=== PATIENT | male | born 1960 | race Caucasian/White ===

== ENCOUNTER 2024-10-06 18:48 | Inpatient (IN) ==
[2024-10-06] MEDS: SODIUM CHLORIDE 0.9% 1,000 ML IV ONE (19:24)
[2024-10-06] MEDS: ACETAMINOPHEN 1,000 MG/100 ML VIAL IV STA (19:25)
[2024-10-06] MEDS: fentaNYL citrate PF 100 MCG/2 ML VIAL IV PRN (19:28)
--- NOTE | 2024-10-06 19:48 | Emergency Department Note ---
Impression & Plan Acute pain of right hip, Fall, Intertrochanteric fracture of right hip ED Provider Note ED Provider Note NAME: NATALI NAJERA AGE:64 SEX: Male : 1960 ARRIVES VIA: EMS INFORMANT: Patient ED PROVIDER(s): Erika Jacobson DO CHIEF COMPLAINT: Right hip pain, fall HPI: This is 64-year-old male presents emergency department due to concern for right hip pain following accidental fall at home. Patient states he tripped over an exercise ball and fell landing on his right hip. He denies any head injury or loss of consciousness. He denies any use of anticoagulation medications. Patient states due to the pain in his hip he was unable to stand back up. He states he also believes he struck his mirror during the fall with his right elbow as he noticed he was bleeding. He states he can move the elbow otherwise. He denies any pain to his neck, back, abdomen, chest, or any other lower extremity injury. He states he crawled to his phone to call family and call 911. PAST MEDICAL HISTORY:See Below PAST SURGICAL HISTORY:See Below FAMILY HISTORY:See Below SOCIAL HISTORY:See Below HOME MEDICATIONS:See Below ALLERGIES:See Below VITALS:See Below PHYSICAL EXAMINATION: GENERAL: alert, uncomfortable appearing, well nourished, no distress, non-toxic, laying left lateral recumbent EYE EXAM: normal conjunctiva, PERRL and EOM's grossly intact OROPHARYNX: no exudate, no erythema, lips, buccal mucosa, and tongue normal and mucous membranes are dry NECK: supple, no nuchal rigidity, no adenopathy, non-tender LUNGS: Clear to auscultation. Normal chest wall mechanics, no w/r/r HEART: no murmurs, S1 normal and S2 normal ABDOMEN: abdomen soft, non-tender, normo-active bowel sounds, no masses, no rebound or guarding. BACK: Back is symmetrical on inspection and there is no deformity, no midline tenderness, no CVA tenderness. SKIN: no rashes, petechiae, orbruising UPPER EXTREMITIES: upper extremities are grossly normal. FROM, nml pulses b/l. LOWER EXTREMITIES: No pitting edema. FROM left lower extremity, nml pulses b/l. Pain with palpation over the right lateral hip, patient with decreased range of motion secondary to pain, no obvious deformity, sensation intact bilateral lower extremities, patient able to wiggle toes and plantar/dorsiflex, no evidence of other more distal trauma to the right lower extremity NEURO EXAM: Normal sensorium, cranial nerves II-XII grossly intact, normal speech, no facial droop,nogross weakness of arms, no gross weakness of legs. Gross sensation intact. No ataxia. Vital Signs: reviewed and remarkable Differential Diagnosis: Fracture, subluxation, dislocation, contusion, ligamentous injury, neurovascular, compartment syndrome, rhabdomyolysis, as well as other pathologies. MEDICAL DECISION MAKING: This is a 64 yo male who presents to the ER following a fall c/o right hip pain. Labs drawn and sent, IV established, EKG and xrays performed and interpreted at bedside, and patient placed on telemetry. Patient noted have a fracture of the right hip. He had no other concern for injury and no other traumatic findings on exam. Upon further discussion at bedside, patient denies hx of heart problems but states he at one time had an irregular heartbeat. I suspect this is the mention of paroxysmal a.fib noted in the EMR. He states he is no longer taking eliquis and hasn's seen cardiology about this since it was diagnosed. Patient states he does take low dose ASA daily. We discussed results and plan. He and sister at bedside verbalized understanding. Case discussed with integration aide ortho and then with hospitalist team for additional inpatient mgmt. Patient was given IVF and initially IV fentanyl for pain. This was then changed to IV morphine. He was also given IV tylenol. Consultation(s): 2139: Discussed with Dr. Brown. 2244: Discussed with Dr. Kendall, [place] hospitalist team, for additional evaluation and mgmt. ER Treatment Provided: See below Diagnostics Interpreted By Me: -ECG: a.fib at 82, nml axis, nml intervals, nonspecific ST/T wave changes -Cardiac Monitoring: An order was placed for continuous cardiac monitoring. The monitor shows a rate of 88 with a.fib rhythm. -Laboratory studies: As stated above and show below. -Imaging studies: X-ray Chest: A single view study of the chest was reviewed and was negative for cardiomegaly, focal infiltrate, effusion, pulmonary edema, or wide mediastinum. No fx/penumothorax. xr right hip/pelvis: comminuted intertrochanteric right hip fx Triage Nursing Note Reviewed Prior/Outside Records Reviewed Past Med/Surg History Problem List (Updated 10/08/24 @ 13:58 by Erika Jacobson DO) Intertrochanteric fracture of right hip (Acute) Status post-operative repair of closed hip fracture Atrial fibrillation Closed right hip fracture Closed left hip fracture Fall (Acute) Acute pain of right hip (Acute) Colon cancer screening Encounter for pre-operative examination New onset a-fib Encounter for pre-operative examination Inguinal hernia Strain of hip flexor BMI 39.0-39.9,adult COVID-19 (Acute) Medical History intermediate school teacher (current) use of anticoagulants New onset a-fib incidental finding during pre op workup for hernia surgery 09/2023. PCP prescribed Eliquis, referred to cardiology. Pt reports he canceled cardiology appt. History of COVID-19 08/2020: cough/fever/loss of taste and smell. pt does still have altered taste. no other issues. Paroxysmal atrial fibrillation (06/21/13) pt denies. Surgical History H/O bursectomy left knee bursectomy (Dr Rahman) r/t severe knee infection H/O shoulder surgery right shoulder Family History Mother Colorectal cancer Father Lung cancer Other No family history of adverse response to anesthesia Denies family history of Ovarian cancer Prostate cancer Diabetes Dementia Depression Heart disease Myocardial infarction Breast cancer Hypertension Stroke Social History Smoking Status: Current some day smoker Tobacco Type: Cigars Age Started Using Tobacco: 59; Cigarettes Per Day: 1 per day; Second Hand Exposure: Yes; Do You Dip or Chew Tobacco: No; Hx Alcohol Use: Yes Alcohol type: beer Alcohol Intake Frequency: 4 or More x per/Week Hx Substance Use: No Preferred Language: Ethiopian Communication Ability: Effective Visual Impairment: Limited Hearing Ability: Normal Assistant Manager Bilingual Required: No Beliefs That Will Affect Care: None marital status: Single Current Living Situation: Alone current occupational status: retired How many Children do You have: 0 Feels Safe at Home: Yes Safety Concerns: Feels Safe At This Time Childhood Exposure to Second-Hand Smoke: Yes Diet: regular caffeine: Yes during the past year weight has: increased > 10 lbs Dental Care, Regularly: Yes Physical Activity Frequency: Does not Exercise Seatbelt Use: always Sunscreen Use: No Assistive Devices: None Allergies Allergies Allergy/AdvReac Type Severity Reaction Status Date / Time No Known Drug Allergies Allergy . Verified 10/06/24 21:23 Home Meds Home Medications Medication Instructions Recorded Confirmed ascorbic acid (vitamin C) 500 mg 500 mg PO QAM 09/26/23 10/06/24 tablet cholecalciferol (vitamin D3) 25 25 mcg PO DAILY 10/06/24 10/06/24 mcg (1,000 unit) tablet (Vitamin D3) vitamin E 268 mg (400 unit) capsule 268 mg PO DAILY 10/06/24 10/06/24 Results & Data (ED) Vital Signs Vital Signs - 24 hr 10/06/24 18:52 10/06/24 19:15 10/06/24 21:00 Temperature 36.5 C Temperature Source Oral Pulse Rate 79 73 Pulse Rate [Apical] 78 Pulse Rhythm [Apical] Regular Pulse Strength [Apical] Normal Respiratory Rate 21 20 Respiratory Effort / Characteristics Non-Labored Spontaneous Non-Labored Spontaneous Respiratory Depth Normal Normal Respiratory Pattern Regular Regular Blood Pressure 114/72 Blood Pressure [Right Arm] 122/84 Blood Pressure Mean 86 Blood Pressure Mean [Right Arm] 96 Blood Pressure Position [Right Arm] Lying Pulse Oximetry 94 96 Oxygen Delivery Method Room Air Room Air Sepsis Recent Fever Within 48 Hours No Sepsis New/Unexplained Change in Mental Status N/A Sepsis Action Taken by Nursing No Action Required Laboratory Data 10/08/24 06:05 10/08/24 06:05 Lab Results 10/06/24 Range/Units 19:04 WBC 5.83 (4.8-10.8) K/ul RBC 4.02 L (4.70-6.10) M/uL Hgb 13.9 L (14.0-18.0) g/dl Hct 39.7 L (42.0-52.0) % MCV 98.8 (80.0-100.0) fL MCH 34.6 H (25.0-34.0) pg MCHC 35.0 (32.0-36.0) g/dL RDW Std Deviation 44.6 (36.4-46.3) fL RDW Coeff of Pita 12.2 (11.5-14.5) % Plt Count 277 (130-400) K/uL MPV 10.3 (9.4-12.4) fL Immature Gran % (Auto) 1.4 % Neut % (Auto) 45.3 % Lymph % (Auto) 37.0 % [place] % (Auto) 13.4 % Eos % (Auto) 1.4 % Baso % (Auto) 1.5 % Neut # (Auto) 2.64 (1.40-6.50) K/uL Lymph # (Auto) 2.16 (1.20-3.40) K/uL [place] # (Auto) 0.78 H (0.11-0.59) K/uL Eos # (Auto) 0.08 (0.00-0.50) K/uL Baso # (Auto) 0.09 (0.00-0.20) K/uL Immature Gran # (Auto) 0.08 (0.01-0.20) K/uL PT 10.9 (9.0-12.0) Seconds INR 1.0 (0.9-1.1) Sodium 137 (136-145) mmol/L Potassium 3.9 (3.5-5.1) mmol/L Chloride 102 (98-107) mmol/L Carbon Dioxide 24 (21-32) mmol/L Anion Gap 11 (3-11) BUN 16 (6-23) mg/dl Creatinine 0.94 (0.6-1.4) mg/dl Est Cr Clr Drug Dosing 118.5 ml/min eGFR 91.09 BUN/Creatinine Ratio 17.0 (10-20) Glucose 150 H (70-99(Fasting)) mg/dl Calcium 9.0 (8.6-10.3) mg/dl Magnesium 2.0 (1.7-2.4) mg/dl Total Bilirubin 0.3 (0.2-1.0) mg/dl AST 24 (13-39) U/L ALT 32 (7-52) U/L Alkaline Phosphatase 69 (34-104) U/L Total Protein 7.2 (6.0-8.3) gm/dl Albumin 4.1 (3.4-5.0) gm/dl Globulin 3.1 (2.5-4.0) gm/dl Albumin/Globulin Ratio 1.3 (0.9-2) TSH 2.770 (0.300-4.500) uIu/ml Administered Medications Acetaminophen (Acetaminophen 500 Mg Tab) 1,000 mg PO Q8H PRN PRN Reason: Pain & Pre PT Stop: 11/05/24 22:27 Last Admin: 10/08/24 08:22 Dose: 1,000 mg Documented By: BOLIVAR Ascorbic Acid (Ascorbic Acid 500 Mg Tab) 500 mg PO [facility] Stop: 11/06/24 08:59 Last Admin: 10/08/24 08:14 Dose: 500 mg Documented By: Admin: 10/07/24 08:49 Dose: 500 mg Documented By: KIMMY Cyanocobalamin (Cyanocobalamin (B-12) 500 Mcg Tablet) [facility] Stop: 11/07/24 08:59 Last Admin: 10/08/24 08:14 Dose: 500 mcg Documented By: BOLIVAR Folic Acid (Folic Acid 1 Mg Tab) 1 mg PO [facility] Stop: 11/07/24 08:59 Last Admin: 10/08/24 08:14 Dose: 1 mg Documented By: BOLIVAR Morphine Sulfate (Morphine Sulfate 4 Mg/Ml 1 Ml Carp\Vial) 4 mg IV Q3H PRN PRN Reason: Pain (6,7,8,9,10) Stop: 10/20/24 22:27 Last Admin: 10/08/24 12:56 Dose: 4 mg Documented By: Admin: 10/07/24 21:56 Dose: 4 mg Documented By: Admin: 10/07/24 10:54 Dose: 4 mg Documented By: Admin: 10/07/24 05:45 Dose: 4 mg Documented By: MARIA ANTONIA Admin: 10/07/24 02:38 Dose: 4 mg Documented By: MARIA ANTONIA Thiamine HCl (Thiamine Hcl 100 Mg Tab) [facility] Stop: 11/07/24 08:59 Last Admin: 10/08/24 08:14 Dose: 100 mg Documented By: BOLIVAR Vitamin D (Cholecalciferol 25 Mcg (1000 Units) Tab) 25 mcg PO DAILY [facility] Stop: 11/06/24 08:59 Last Admin: 10/08/24 08:14 Dose: 25 mcg Documented By: Admin: 10/07/24 08:49 Dose: 25 mcg Documented By: CSE Discontinued Medications Bupivacaine HCl (Bupivacaine 0.5 % 5 Mg/1 Ml Mpf 30ml Vial) Confirm Administered Dose 30 ml .ROUTE .STK-MED ONE Stop: 10/07/24 14:30 Last Admin: 10/07/24 15:57 Dose: 20 ml Documented By: NACHO Fentanyl Citrate (Fentanyl Citrate Pf 100 Mcg/2 Ml Vial) 100 mcg IV Q15M PRN PRN Reason: Pain Stop: 10/20/24 19:03 Last Admin: 10/06/24 19:28 Dose: 100 mcg Documented By: KEATON Fentanyl Citrate (Fentanyl Citrate Pf 100 Mcg/2 Ml Vial) 25 mcg IV Q5M PRN PRN Reason: PACU Use Only-Pain Stop: 10/07/24 21:48 Last Admin: 10/07/24 16:55 Dose: 25 mcg Documented By: Admin: 10/07/24 16:50 Dose: 25 mcg Documented By: Admin: 10/07/24 16:45 Dose: 25 mcg Documented By: Admin: 10/07/24 16:40 Dose: 25 mcg Documented By: JOSEPHINE Hydromorphone HCl (Hydromorphone Inj 1 Mg/Ml Syringe) 0.25 mg IV Q5M PRN PRN Reason: PACU Use Only-Pain Stop: 10/07/24 21:48 Last Admin: 10/07/24 17:15 Dose: 0.25 mg Documented By: Admin: 10/07/24 17:10 Dose: 0.25 mg Documented By: Admin: 10/07/24 17:05 Dose: 0.25 mg Documented By: Admin: 10/07/24 17:00 Dose: 0.25 mg Documented By: JOSEPHINE Sodium Chloride (Nss) 1,000 mls @ 999 mls/hr IV .Q1H1M ONE Stop: 10/06/24 20:04 Last Infusion: 10/06/24 23:20 Dose: Infused Documented By: Admin: 10/06/24 19:24 Dose: 999 mls/hr Documented By: KEATON Acetaminophen (Ofirmev) 1,000 mg in 100 mls @ 400 mls/hr IV NOW STA Stop: 10/06/24 19:18 Last Infusion: 10/06/24 23:19 Dose: Infused Documented By: Admin: 10/06/24 19:25 Dose: 400 mls/hr Documented By: KEATON Sodium Chloride (Nss) 1,000 mls @ 125 mls/hr IV .Q8H DARIN Stop: 10/07/24 22:44 Last Infusion: 10/08/24 04:11 Dose: Infused Documented By: Admin: 10/07/24 19:09 Dose: 125 mls/hr Documented By: Admin: 10/07/24 18:36 Dose: Not Given Documented By: Infusion: 10/07/24 18:05 Dose: Infused Documented By: Admin: 10/07/24 07:58 Dose: 125 mls/hr Documented By: Infusion: 10/07/24 07:26 Dose: Infused Documented By: Admin: 10/06/24 23:26 Dose: 125 mls/hr Documented By: Tranexamic Acid (Tranexamic Acid / 0.7% Nacl) 1,000 mg in 100 mls @ 600 mls/hr IV PREOP DARIN Stop: 10/07/24 16:00 Last Admin: 10/07/24 18:36 Dose: Not Given Documented By: SETH Tranexamic Acid (Tranexamic Acid / 0.7% Nacl) 1,000 mg in 100 mls @ 600 mls/hr IV PREOP DARIN Stop: 10/07/24 16:00 Last Infusion: 10/07/24 18:05 Dose: Infused Documented By: Admin: 10/07/24 15:53 Dose: 600 mls/hr Documented By: DELPHINE Cefazolin Sodium (Ancef 3000mg) 3,000 mg in 72.5 mls @ 130 mls/hr IV PREOP DARIN; Protocol Stop: 10/07/24 18:00 Last Infusion: 10/07/24 18:05 Dose: Infused Documented By: Admin: 10/07/24 14:34 Dose: 130 mls/hr Documented By: DELPHINE Cefazolin Sodium (Ancef 2000mg) 2,000 mg in 15 mls @ 3.75 mls/min IV Q8H DARIN; Protocol Stop: 10/08/24 06:33 Last Admin: 10/08/24 05:52 Dose: 3.75 mls/min Documented By: Admin: 10/07/24 21:47 Dose: 3.75 mls/min Documented By: SMN Lidocaine/Epinephrine (Lidocaine 1%/Epinephrine 1:100,000 50 Ml Vial) Confirm Administered Dose 20 ml .ROUTE .STK-MED ONE Stop: 10/07/24 14:30 Last Admin: 10/07/24 15:58 Dose: 20 ml Documented By: NACHO Morphine Sulfate (Morphine Sulfate 4 Mg/Ml 1 Ml Carp\Vial) 4 mg IV Q1H PRN PRN Reason: Pain Stop: 10/20/24 21:08 Last Admin: 10/06/24 21:14 Dose: 4 mg Documented By: KEATON Morphine Sulfate (Morphine Sulfate 4 Mg/Ml 1 Ml Carp\Vial) 4 mg IV NOW STA Stop: 10/06/24 22:59 Last Admin: 10/06/24 23:30 Dose: 4 mg Documented By: Imaging Data Radiologist's Impression: Chest X-Ray 10/06/24 19:04 Exam(s): XR CXR 1 VIEW EXAM: XR Chest, 1 View CLINICAL HISTORY: Reason for exam: trauma. TECHNIQUE: Frontal view of the chest. COMPARISON: No relevant prior studies available. FINDINGS: Lungs: Unremarkable. No consolidation. Pleural space: Unremarkable. No pneumothorax. Heart: Unremarkable. No cardiomegaly. Mediastinum: Unremarkable. Normal mediastinal contour. Bones/joints: Unremarkable. No acute fracture. IMPRESSION: Normal chest x-ray. Electronically signed by: Domingo Perez MD 10/06/24 20:28 PM Hip X-Ray 10/06/24 19:04 Exam(s): XR HIP + PELVIS, 2-3 views EXAM: XR Left Hip With Pelvis When Performed, 2 or 3 Views CLINICAL HISTORY: Reason for exam: trauma. TECHNIQUE: Two or three views of the left hip with pelvis when performed. COMPARISON: No relevant prior studies available. FINDINGS: Bones/joints: Comminuted displaced angulated intertrochanteric left hip fracture. Femoral head maintains a normal anatomic relationship with the acetabulum. No dislocation. Soft tissues: Unremarkable. IMPRESSION: Comminuted displaced angulated intertrochanteric left hip fracture Electronically signed by: Domingo Perez MD 10/06/24 20:30 PM Discharge Plan Visit Data Chief Complaint: Fall ED Provider: Erika Jacobson Discharge Problem: Acute pain of right hip, Fall, Intertrochanteric fracture of right hip Patient Disposition: Home - Self-Care Discharge Instructions Interventions: ED Discharge Assessment Last Done: 10/07/24 02:21
[2024-10-06 19:55] LABS: Basophils # (auto) 0.09 K/uL (0.00-0.20); Basophils % (auto) 1.5 %; Eosinophils # (auto) 0.08 K/uL (0.00-0.50); Eosinophils % (auto) 1.4 %; Hematocrit (blood only) 39.7 % (42.0-52.0); Hemoglobin 13.9 g/dl (14.0-18.0); Immature Granulocytes # (auto) 0.08 K/uL (0.01-0.20); Immature Granulocytes % (auto) 1.4 %; Lymphocytes # (auto) 2.16 K/uL (1.20-3.40); Mean Corpuscular Hemoglobin 34.6 pg (25.0-34.0); Mean Corpuscular Volume 98.8 fL (80.0-100.0); Mean Platelet Volume 10.3 fL (9.4-12.4); Monocytes # (auto) 0.78 K/uL (0.11-0.59); Monocytes % (auto) 13.4 %; Neutrophils # (auto) 2.64 K/uL (1.40-6.50); Neutrophils % (auto) 45.3 %; Platelet Count 277 K/uL (130-400); RDW Coefficient of Variation 12.2 % (11.5-14.5); RDW Standard Deviation 44.6 fL (36.4-46.3); Red Blood Count 4.02 M/uL (4.70-6.10); White Blood Count 5.83 K/ul (4.8-10.8)
[2024-10-06 20:15] LABS: Albumin Globulin Ratio 1.3 (0.9-2); Albumin Level 4.1 gm/dl (3.4-5.0); Bilirubin,Total 0.3 mg/dl (0.2-1.0); Creatinine Clr Calc Pharmacy 118.5 ml/min; Globulin 3.1 gm/dl (2.5-4.0); Potassium 3.9 mmol/L (3.5-5.1); Total Protein 7.2 gm/dl (6.0-8.3)
[2024-10-06 20:20] LABS: Prothrombin Time 10.9 Seconds (9.0-12.0)
--- NOTE | 2024-10-06 20:29 | XRay Report ---
Exam(s): XR CXR 1 VIEW EXAM: XR Chest, 1 View CLINICAL HISTORY: Reason for exam: trauma. TECHNIQUE: Frontal view of the chest. COMPARISON: No relevant prior studies available. FINDINGS: Lungs: Unremarkable. No consolidation. Pleural space: Unremarkable. No pneumothorax. Heart: Unremarkable. No cardiomegaly. Mediastinum: Unremarkable. Normal mediastinal contour. Bones/joints: Unremarkable. No acute fracture. IMPRESSION: Normal chest x-ray. Electronically signed by: Domingo Perez MD 10/06/24 20:28 PM
--- NOTE | 2024-10-06 20:31 | XRay Report ---
Exam(s): XR HIP + PELVIS, 2-3 views EXAM: XR Left Hip With Pelvis When Performed, 2 or 3 Views CLINICAL HISTORY: Reason for exam: trauma. TECHNIQUE: Two or three views of the left hip with pelvis when performed. COMPARISON: No relevant prior studies available. FINDINGS: Bones/joints: Comminuted displaced angulated intertrochanteric left hip fracture. Femoral head maintains a normal anatomic relationship with the acetabulum. No dislocation. Soft tissues: Unremarkable. IMPRESSION: Comminuted displaced angulated intertrochanteric left hip fracture Electronically signed by: Domingo Perez MD 10/06/24 20:30 PM
[2024-10-06] MEDS: MoRPHine SULFATE 4 MG/ML 1 ML CARP\\VIAL IV PRN (21:14)
--- NOTE | 2024-10-06 22:08 | History & Physical Report ---
Date of Service October 06, 2024 Assessment & Plan (1) Closed left hip fracture: Plan 64-year-old male PMHx paroxysmal A-fib not currently anticoagulated who presents to ED s/p ground-level fall. L hip fx identified on XR. H/H stable at time of admission, no gross electrolyte abnormalities. Pt is found to be in Afib on admission, but rate controlled. No anticoagulation for months. #Hip fracture, closed, L Pt presenting for ground-level fall, landing on R hip. Pt's history supports that this was a mechanical fall and not 2/2 underlying etiology. Pain 7-8/10 on the pain scale, no abnormalities in sensation or perfusion during admitting exam. - Admitting labs as follows CBC H&H 13.9/39.7, CMP grossly WNL; CXR WNL; L hip XR comminuted displaced angulated intertrochanteric L hip fracture - Received 1L NSS IVF in ED; continue NSS at 125 mL/hr - EKG Afib, rate controlled @ 70bpm - Pain control as ordered - NPO midnight - Ortho surgery consulted - Appreciate ortho input + recs #A-fib, paroxysmal Reported history of incidental finding of A-fib, was to be on Eliquis, but patient is not currently taking. States that he took this medication until his prescription ran out; Initially filled 09/2023. Was to follow-up with qi specialist regarding this finding, however did not do this either. Has been asymptomatic. - EKG on admission showed A-fib, rate 70 bpm; telemetry revealing still A-fib rate between 70 to 80 bpm - TSH and Mg pending; No echo ordered at time of admission - Patient is not on any medications for anticoagulation, rate control, or rhythm control - [id number] score 0 = 0.2% stroke risk per year; HAS-BLED score 0 = 0.9% risk for major bleeding - recommend following up with his PCP/a qi specialist regarding this finding as it has never been worked up Dispo: Admit med sx VTE prophylaxis: SCDs This document was dictated utilizing [employer] Please excuse any grammatical errors that may be secondary to use of this software. Admission and Anticipated Discharge Date Admission Date: 10/06/2024 History of Present Illness Chief Complaint: Fall Primary Care Provider: SALOME Lynch 64-year-old male PMHx paroxysmal A-fib not currently anticoagulated who presents to ED s/p ground-level fall. States that he had tripped over an exercise ball or map when getting out of bed this morning, hit his right elbow on a mirror, and then landed on his right hip. Did not strike his head. Was unable to get up by himself. Patient states that the L hip is causing him pain, currently rating it 7-8/10 on the pain scale. States he did not have any symptoms prior to this fall such as dizziness, chest pain, shortness of breath. Does have chronic abdominal pain at sight of hernia (RLQ/groin), but otherwise stable. Otherwise denying chest pain, shortness of breath, palpitations, worsening abdominal pain, N/V/D/C, numbness/tingling, or LUTS. Of note, patient was previously dx w/ Afib and started on anticoag by PCP, was encouraged to follow up with qi specialist. Pt admits that he canceled this appo intment and never followed up. Was on eliquis until prescription ran out in beginning of 2023. Was previously identified during pre-op assessment for hernia repair which was never completed. Please see Dr. Kendall's attestation for adjustments/additions to treatment plan. Allergies Allergy/AdvReac Type Severity Reaction Status Date / Time No Known Drug Allergies Allergy . Verified 10/06/24 21:23 Home Medications Medication Instructions Recorded Confirmed Type ascorbic acid (vitamin C) 500 mg 500 mg PO QAM 09/26/23 10/06/24 History tablet cholecalciferol (vitamin D3) 25 25 mcg PO DAILY 10/06/24 10/06/24 History mcg (1,000 unit) tablet (Vitamin D3) vitamin E 268 mg (400 unit) capsule 268 mg PO DAILY 10/06/24 10/06/24 History Past Med/Surg History Problem List Closed left hip fracture Fall (Acute) Acute pain of right hip (Acute) Colon cancer screening Encounter for pre-operative examination New onset a-fib Encounter for pre-operative examination Inguinal hernia Strain of hip flexor BMI 39.0-39.9,adult COVID-19 (Acute) 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 PCP prescribed Eliquis, referred to cardiology. Pt reports he canceled cardiology appt. History of COVID-19 08/2020: cough/fever/loss of taste and smell. pt does still have altered taste. no other issues. Paroxysmal atrial fibrillation (06/21/13) pt denies. Surgical History H/O bursectomy left knee bursectomy (Dr Rahman) r/t severe knee infection H/O shoulder surgery right shoulder Family History Mother Colorectal cancer Father Lung cancer Other No family history of adverse response to anesthesia Denies family history of Ovarian cancer Prostate cancer Diabetes Dementia Depression Heart disease Myocardial infarction Breast cancer Hypertension Stroke Social History Smoking Status: Never smoker Tobacco Type: Cigars Age Started Using Tobacco: 59; Cigarettes Per Day: 1 per day; Second Hand Exposure: Yes; Do You Dip or Chew Tobacco: No; Hx Alcohol Use: Yes Alcohol type: beer Alcohol Intake Frequency: 4 or More x per/Week Hx Substance Use: No Preferred Language: British Communication Ability: Effective Visual Impairment: Limited Hearing Ability: Normal 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 Beliefs That Will Affect Care: None marital status: Single Current Living Situation: Alone current occupational status: retired How many Children do You have: 0 Feels Safe at Home: Yes Childhood Exposure to Second-Hand Smoke: Yes Diet: regular caffeine: Yes during the past year weight has: increased > 10 lbs Dental Care, Regularly: Yes Physical Activity Frequency: Does not Exercise Seatbelt Use: always Sunscreen Use: No Assistive Devices: None Review of Systems Review of Systems: All systems reviewed & are unremarkable except as noted in Subjective Physical Exam Physical Exam: General: No acute distress Skin: Warm and dry, without rashes; R elbow skin tear Head: Normocephalic, atraumatic Eyes: PERRL, conjunctivae clear, sclera non-icteric; EOM intact ENT: External ear and ear canal without swelling; nose atraumatic; good dentition, tongue normal appearance, pharynx normal without tonsillar swelling or exudate Neck: Supple, no LAD; no JVD Cardio: RRR, no M/G/R, S1 and S2 normal Resp: No respiratory distress, Lungs CTA in all lobes bilaterally, no wheezes, rales, or rhonchi Abdomen: Soft, symmetric, nontender; no distention; No masses or hepatosp lenomegaly; Bowel sounds normoactive MSK: Has LLE propped on bedrail, LLE slightly shortened, able to move all toes and normal sensation; no additional deformities, full ROM throughout otherwise; pulses palpable and equal; no edema. Neuro: Awake, alert; sensation intact bilaterally; CN grossly intact Psych: Appropriate mood and affect; good judgement and insight. Results & Data Results & Data Vital Signs (Past 12 Hours) Vital Signs Temp Pulse Pulse Resp BP BP Pulse Ox 10/06/24 21:00 78 20 122/84 96 10/06/24 19:15 73 10/06/24 18:52 36.5 C 79 21 114/72 94 O2 Del Method 10/06/24 21:00 Room Air 10/06/24 19:15 10/06/24 18:52 Room Air Laboratory Results 10/06/24 19:04 WBC 5.83 RBC 4.02 L Hgb 13.9 L Hct 39.7 L MCV 98.8 MCH 34.6 H MCHC 35.0 RDW Std Deviation 44.6 RDW Coeff of Pita 12.2 Plt Count 277 MPV 10.3 Immature Gran % (Auto) 1.4 Neut % (Auto) 45.3 Lymph % (Auto) 37.0 [place] % (Auto) 13.4 Eos % (Auto) 1.4 Baso % (Auto) 1.5 Neut # (Auto) 2.64 Lymph # (Auto) 2.16 [place] # (Auto) 0.78 H Eos # (Auto) 0.08 Baso # (Auto) 0.09 Immature Gran # (Auto) 0.08 PT 10.9 INR 1.0 Sodium 137 Potassium 3.9 Chloride 102 Carbon Dioxide 24 Anion Gap 11 BUN 16 Creatinine 0.94 Est Cr Clr Drug Dosing 118.5 eGFR 91.09 BUN/Creatinine Ratio 17.0 Glucose 150 H Calcium 9.0 Total Bilirubin 0.3 AST 24 ALT 32 Alkaline Phosphatase 69 Total Protein 7.2 Albumin 4.1 Globulin 3.1 Albumin/Globulin Ratio 1.3 Diagnostic Findings Chest X-Ray 10/06/24 19:04 Exam(s): XR CXR 1 VIEW EXAM: XR Chest, 1 View CLINICAL HISTORY: Reason for exam: trauma. TECHNIQUE: Frontal view of the chest. COMPARISON: No relevant prior studies available. FINDINGS: Lungs: Unremarkable. No consolidation. Pleural space: Unremarkable. No pneumothorax. Heart: Unremarkable. No cardiomegaly. Mediastinum: Unremarkable. Normal mediastinal contour. Bones/joints: Unremarkable. No acute fracture. IMPRESSION: Normal chest x-ray. Electronically signed by: Domingo Perez MD 10/06/24 20:28 PM Hip X-Ray 10/06/24 19:04 Exam(s): XR HIP + PELVIS, 2-3 views EXAM: XR Left Hip With Pelvis When Performed, 2 or 3 Views CLINICAL HISTORY: Reason for exam: trauma. TECHNIQUE: Two or three views of the left hip with pelvis when performed. COMPARISON: No relevant prior studies available. FINDINGS: Bones/joints: Comminuted displaced angulated intertrochanteric left hip fracture. Femoral head maintains a normal anatomic relationship with the acetabulum. No dislocation. Soft tissues: Unremarkable. IMPRESSION: Comminuted displaced angulated intertrochanteric left hip fracture Electronically signed by: Domingo Perez MD 10/06/24 20:30 PM ECG Additional Comments: A-fib 70 bpm, QRS 84, QT/QTc 356/405, PRT -/70/41 Code Status & VTE Plan Code Status Full Supervising Physician Co-Signing Physician Notes Patient seen and examined chart reviewed, case discussed with JAM Conteh and I agree with the assessment and plan as above. In brief, patient is a 64yo male with history of AF not on anticoagulation presenting after a ground level fall resulting in comminuted displaced angulated left intertrochanteric hip fracture. Patient denies chest pain, cough, SOB. Presently with pain in left hip but otherwise no complaints. On exam he is resting, in discomfort but NAD Skin - no bruising HEENT- MMM, neck supple Heart - +S1/S2, regular, no m/r/g Lungs - CTA, no rales/rhonchi/wheezes Abd - +BS, soft, NT/ND Ext - warm, well perfused, NV intact, skin tear right elbow Labs and images reviewed Assessment/Plan LEFT hip fracture - comminuted and displaced. NV intact. Pain is improved with morphine Admit to medical Maintain NPO status Pain control Patient with history of atrial fibrillation. Not currently on anticoagulation Denies history of CAD or heart failure. No cerebrovascular disease or lung disease. [id number] Score=0 - systemic anticoagulation is not recommended Will obtain EKG now to assess rhythm Per RCRI criteria patient with minimal perioperative risk. He may proceed to surgery with no additional workup. PG Care Time/CCT Total # of Minutes Spent Total Time Spent with Patient: Total time spent is greater than 50% in coordination of care (as documented) at patient's floor/unit and/or counseling patient: Coding Level of Care Code 80786 INT INP/OBS CARE MIN Diagnoses Closed left hip fracture S72.002A
[2024-10-06] MEDS ORDERED: TRANEXAMIC ACID / 0.7% NACL 1,000 MG/100 ML BAG IV SCH ×2 (22:15)
[2024-10-06] MEDS ORDERED: ceFAZolin 2000MG 2,000 MG/15 ML SYR IV SCH (22:15)
[2024-10-06 23:16] LABS: Thyroid Stimulating Hormone 2.77 uIu/ml (0.300-4.500)
[2024-10-06] MEDS: MoRPHine SULFATE 2 MG/ML CARP IV PRN (23:23)
[2024-10-06] MEDS: SODIUM CHLORIDE 0.9% 1,000 ML IV SCH (23:26)
[2024-10-06] MEDS: MoRPHine SULFATE 4 MG/ML 1 ML CARP\\VIAL IV STA (23:30)
[2024-10-07] MEDS ORDERED: ONDANSETRON INJ 2 MG/ML 2 ML VIAL IV PRN ×2 (02:29→13:48)
[2024-10-07] MEDS ORDERED: bisacodyL 10 MG SUPP PR PRN (02:29)
[2024-10-07] MEDS ORDERED: NALOXONE HCL 0.4 MG/1 ML VIAL/CARP IV PRN (02:29)
[2024-10-07] MEDS: MoRPHine SULFATE 4 MG/ML 1 ML CARP\\VIAL IV PRN (02:38)
[2024-10-07] MEDS ORDERED: ceFAZolin 2000MG 2,000 MG/15 ML SYR IV SCH (06:00)
--- NOTE | 2024-10-07 07:45 | Orthopedic Consultation ---
Date of Consultation October 07, 2024 Assessment & Plan (1) Acute pain of right hip: The patient is a 64 year old male who sustained a right hip fracture from a ground level fall. The patients treatment options of conservative versus surgical intervention were discussed. Since the patient was an ambulatory prior to the injury and to avoid the risks of bed sores, pulmonary complications, and to give the best chance for ambulation, I recommended surgery. The patient understands the risks of surgery, which include but are not limited to: bleeding, infection, re-operation, damage to nerves and arteries, continued pain, failure of the hardware, mal-union, non-union, DVT, and . In addition the patient is aware of the 20-30% morbidity associated with hip fracture for up to 1 year following a hip fracture. The patient has elected to proceed with surgery and the informed consent was signed. RLE initialled. The patient understands all of these instructions and explanations, all of their questions have been satisfactorily addressed. Placed on the add-on schedule for later today. Medically stable for surgery plan transfer to Tele for monitoring post-op. Patient has been NPO after midnight. The patient will be NWB. TEDs and foot pumps to LLE. Antibiotics & TXA admission specialist to OR. History of Present Illness Reason for Consultation: Right Hip Fracture Requesting Physician: Onur Brown MD Attending Physician: Damaris Echevarria MD History of Present Illness Patient is a 64yo male with history of A-Fib not on anticoagulation presenting after a ground level fall due to tripping, resulting in right intertrochanteric hip fracture. Patient denies chest pain, cough, SOB. Presently with pain in right hip. He was admitted to the hospitalist service. I was consulted for further evaluation and treatment of the right hip fracture. Allergies Allergy/AdvReac Type Severity Reaction Status Date / Time No Known Drug Allergies Allergy . 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 PCP prescribed Eliquis, referred to cardiology. Pt reports he canceled c ardiology appt. History of COVID-19 08/2020: cough/fever/loss of taste and smell. pt does still have altered taste. no other issues. Paroxysmal atrial fibrillation (06/21/13) pt denies. Surgical History H/O bursectomy left knee bursectomy (Dr Rahman) r/t severe knee infection H/O shoulder surgery right shoulder Family History Mother Colorectal cancer Father Lung cancer Other No family history of adverse response to anesthesia Denies family history of Ovarian cancer Prostate cancer Diabetes Dementia Depression Heart disease Myocardial infarction Breast cancer Hypertension Stroke Social History Smoking Status: Current some day smoker Tobacco Type: Cigars Age Started Using Tobacco: 59; Cigarettes Per Day: 1 per day; Second Hand Exposure: Yes; Do You Dip or Chew Tobacco: No; Hx Alcohol Use: Yes Alcohol type: beer Alcohol Intake Frequency: 4 or More x per/Week Hx Substance Use: No Preferred Language: Indonesian Communication Ability: Effective Visual Impairment: Limited Hearing Ability: Normal 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 Beliefs That Will Affect Care: None marital status: Single Current Living Situation: Alone current occupational status: retired How many Children do You have: 0 Feels Safe at Home: Yes Childhood Exposure to Second-Hand Smoke: Yes Diet: regular caffeine: Yes during the past year weight has: increased > 10 lbs Dental Care, Regularly: Yes Physical Activity Frequency: Does not Exercise Seatbelt Use: always Sunscreen Use: No Assistive Devices: Glasses Review of Systems Review of Systems: All systems reviewed & are unremarkable except as noted in HPI & below Physical Exam Physical Exam: RLE: Shortened and externally rotated. 2+ DP pulse. Wiggling toes and ankle. Calf soft and non-tender. +TTP groin. Results & Data Vital Signs (Past 12 Hours) Vital Signs Temp Pulse Pulse Pulse Resp BP Pulse Ox 10/07/24 06:29 36.7 C 87 20 122/84 97 10/07/24 02:21 10/07/24 02:15 36.6 C 84 20 147/74 H 98 10/07/24 01:44 83 18 134/80 95 10/06/24 23:42 79 136/77 96 10/06/24 23:25 76 10/06/24 22:25 71 20 127/76 99 10/06/24 21:00 78 20 122/84 96 O2 Del Method 10/07/24 06:29 Room Air 10/07/24 02:21 Room Air 10/07/24 02:15 Room Air 10/07/24 01:44 Room Air 10/06/24 23:42 Room Air 10/06/24 23:25 10/06/24 22:25 Room Air 10/06/24 21:00 Room Air Laboratory Results Laboratory Results WBC 5.83 K/ul (4.8-10.8) 10/06/24 19:04 RBC 4.02 M/uL (4.70-6.10) L 10/06/24 19:04 Hgb 13.9 g/dl (14.0-18.0) L 10/06/24 19:04 Hct 39.7 % (42.0-52.0) L 10/06/24 19:04 MCV 98.8 fL (80.0-100.0) 10/06/24 19:04 MCH 34.6 pg (25.0-34.0) H 10/06/24 19:04 MCHC 35.0 g/dL (32.0-36.0) 10/06/24 19:04 RDW Std Deviation 44.6 fL (36.4-46.3) 10/06/24 19:04 RDW Coeff of Pita 12.2 % (11.5-14.5) 10/06/24 19:04 Plt Count 277 K/uL (130-400) 10/06/24 19:04 MPV 10.3 fL (9.4-12.4) 10/06/24 19:04 Immature Gran % (Auto) 1.4 % 10/06/24 19:04 Neut % (Auto) 45.3 % 10/06/24 19:04 Lymph % (Auto) 37.0 % 10/06/24 19:04 [place] % (Auto) 13.4 % 10/06/24 19:04 Eos % (Auto) 1.4 % 10/06/24 19:04 Baso % (Auto) 1.5 % 10/06/24 19:04 Neut # (Auto) 2.64 K/uL (1.40-6.50) 10/06/24 19:04 Lymph # (Auto) 2.16 K/uL (1.20-3.40) 10/06/24 19:04 [place] # (Auto) 0.78 K/uL (0.11-0.59) H 10/06/24 19:04 Eos # (Auto) 0.08 K/uL (0.00-0.50) 10/06/24 19:04 Baso # (Auto) 0.09 K/uL (0.00-0.20) 10/06/24 19:04 Immature Gran # (Auto) 0.08 K/uL (0.01-0.20) 10/06/24 19:04 PT 10.9 Seconds (9.0-12.0) 10/06/24 19:04 INR 1.0 (0.9-1.1) 10/06/24 19:04 Sodium 137 mmol/L (136-145) 10/06/24 19:04 Potassium 3.9 mmol/L (3.5-5.1) 10/06/24 19:04 Chloride 102 mmol/L (98-107) 10/06/24 19:04 Carbon Dioxide 24 mmol/L (21-32) 10/06/24 19:04 Anion Gap 11 (3-11) 10/06/24 19:04 BUN 16 mg/dl (6-23) 10/06/24 19:04 Creatinine 0.94 mg/dl (0.6-1.4) 10/06/24 19:04 Est Cr Clr Drug Dosing 118.5 ml/min 10/06/24 19:04 eGFR 91.09 10/06/24 19:04 BUN/Creatinine Ratio 17.0 (10-20) 10/06/24 19:04 Glucose 150 mg/dl (70-99(Fasting)) H 10/06/24 19:04 Calcium 9.0 mg/dl (8.6-10.3) 10/06/24 19:04 Magnesium 2.0 mg/dl (1.7-2.4) 10/06/24 19:04 Total Bilirubin 0.3 mg/dl (0.2-1.0) 10/06/24 19:04 AST 24 U/L (13-39) 10/06/24 19:04 ALT 32 U/L (7-52) 10/06/24 19:04 Alkaline Phosphatase 69 U/L (34-104) 10/06/24 19:04 Total Protein 7.2 gm/dl (6.0-8.3) 10/06/24 19:04 Albumin 4.1 gm/dl (3.4-5.0) 10/06/24 19:04 Globulin 3.1 gm/dl (2.5-4.0) 10/06/24 19:04 Albumin/Globulin Ratio 1.3 (0.9-2) 10/06/24 19:04 TSH 2.770 uIu/ml (0.300-4.500) 10/06/24 19:04 Diagnostic Findings Hip X-Ray 10/06/24 19:04 Exam(s): XR Right HIP + PELVIS, 2-3 views EXAM: XR Right Hip With Pelvis When Performed, 2 or 3 Views CLINICAL HISTORY: Reason for exam: trauma. TECHNIQUE: Two or three views of the right hip with pelvis when performed. COMPARISON: No relevant prior studies available. FINDINGS: Bones/joints: Comminuted displaced angulated intertrochanteric right hip fracture. Femoral head maintains a normal anatomic relationship with the acetabulum. No dislocation. Soft tissues: Unremarkable. IMPRESSION: Comminuted displaced angulated intertrochanteric right hip fracture Impressions Chest X-Ray 10/06/24 19:04 Exam(s): XR CXR 1 VIEW EXAM: XR Chest, 1 View CLINICAL HISTORY: Reason for exam: trauma. TECHNIQUE: Frontal view of the chest. COMPARISON: No relevant prior studies available. FINDINGS: Lungs: Unremarkable. No consolidation. Pleural space: Unremarkable. No pneumothorax. Heart: Unremarkable. No cardiomegaly. Mediastinum: Unremarkable. Normal mediastinal contour. Bones/joints: Unremarkable. No acute fracture. IMPRESSION: Normal chest x-ray. Electronically signed by: Domingo Perez MD 10/06/24 20:28 PM
--- NOTE | 2024-10-07 08:10 | Anesthesiology Consultation ---
Date of Service October 07, 2024 Assessment & Plan (1) Encounter for pre-operative examination: Chart Review Chart Review: Acceptable Risk for Surgery History Surgery Operation Date: 10/07/24 07:00 Proposed Procedures p Right Open Reduction Internal Fixation Hip - David Lexii Brown MD Height/Weight Height: 6 ft 1 in Weight: 138.436 kg Allergies Allergy/AdvReac Type Severity Reaction Status Date / Time No Known Drug Allergies Allergy . Verified 10/06/24 21:23 Medications Home Medications Medication Instructions Recorded Confirmed Last Taken ascorbic acid (vitamin C) 500 mg 500 mg PO QAM 09/26/23 10/06/24 10/05/24 tablet cholecalciferol (vitamin D3) 25 25 mcg PO DAILY 10/06/24 10/06/24 10/05/24 mcg (1,000 unit) tablet (Vitamin D3) vitamin E 268 mg (400 unit) capsule 268 mg PO DAILY 10/06/24 10/06/24 10/05/24 Active Medications Generic Name Dose Route Start Last Admin Trade Name Freq PRN Reason Stop Dose Admin Sodium Chloride 1,000 mls @ 125 mls/hr 10/06/24 22:45 10/07/24 07:58 Nss IV 10/07/24 22:44 125 mls/hr .Q8H DARIN Administration Morphine Sulfate 4 mg 10/06/24 22:28 10/07/24 05:45 Morphine Sulfate 4 Mg/Ml 1 Ml Carp\Vial IV 10/20/24 22:27 4 mg Q3H PRN Administration Pain (6,7,8,9,10) Past Medical History 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 PCP prescribed Eliquis, referred to cardiology. Pt reports he canceled cardiology appt. History of COVID-19 08/2020: cough/fever/loss of taste and smell. pt does still have altered taste. no other issues. Paroxysmal atrial fibrillation (06/21/13) pt denies. Past Family History Family History Mother Colorectal cancer Father Lung cancer Other No family history of adverse response to anesthesia Denies family history of Ovarian cancer Prostate cancer Diabetes Dementia Depression Heart disease Myocardial infarction Breast cancer Hypertension Stroke Past Surgical History Surgical History H/O bursectomy left knee bursectomy (Dr Rahman) r/t severe knee infection H/O shoulder surgery right shoulder Social History Smoking Status: Current some day smoker Smoking cigarettes per day: 1 per day Do You Dip or Chew Tobacco: No Hx Alcohol Use: Yes Alcohol type: beer alcohol intake frequency: other Alcohol Intake Frequency Comment: 7-8 beers every other night Hx Substance Use: No substance use type: does not use Physical Exam Vital Signs Last Vital Signs Temp 36.7 C 10/07/24 07:44 Pulse 84 10/07/24 07:44 Resp 16 10/07/24 07:44 BP 136/89 10/07/24 07:44 Pulse Ox 98 10/07/24 07:44 O2 Del Method Room Air 10/07/24 07:44 Testing Laboratory Results PT 10.9 Seconds (9.0-12.0) 10/06/24 19:04 INR 1.0 (0.9-1.1) 10/06/24 19:04 Laboratory Tests 10/06/24 19:04 Hgb 13.9 L Plt Count 277 Potassium 3.9 Creatinine 0.94 Electrocardiogram Date: 10/06/24 Findings: + AFIB @ (82) Chest X-Ray Date: 10/06/24 Findings: + NAD
--- NOTE | 2024-10-07 08:14 | Hospitalist Progress Note ---
Date of Service October 07, 2024 Assessment & Plan (1) Closed right hip fracture: Plan: 64-year-old male PMHx paroxysmal A-fib not currently anticoagulated who presented to ED s/p ground-level fall. No syncope and reported tripping and do not suspect related to afib and rates controlled/not on any medications and electrolytes stable. CXR negative XRAY with LEFT hip fracture -Comminuted displaced angulated intertrochanteric left hip fracture Dr Brown, orthopedics consulted NPO IVF NS @ 125cc/hr, no hx CHF/laying flat comfortably with 98% on RA Pain control, antiemetics as needed Plans for OR today for ORIF with Dr Brown, medically stable for surgery however notable did message to put on monitored bed post op to ensure no issues and rec for eliquis for DVT proph given afib. PT/OT following surgery, CM to follow Will need PCP/cardiology f/u at [facility] Labs in AM (2) Acute pain of right hip: Plan: as above (3) Atrial fibrillation: Plan: Hx noted pre-op for screening for ORIF as above -- incidental finding during pre op workup for hernia surgery 09/2023. PCP prescribed Eliquis, referred to cardiology and he reports never having followed up and only took 1 month. No palpitations/sensation, never symptomatic TSH wnl, mag stable 2.0 and K 4.6 with stable renal function Not on any rate controlling meds [id number] score 0 = 0.2% stroke risk per year; HAS-BLED score 0 = 0.9% risk for major bleeding Remains in afib on exam and repeat EKG Notable does have alcohol w/ beer on the weekends/never had withdrawal. Did have alcohol with the foot ball game and ? holiday heart While CHADSVASC score technically 0, possible w/ underlying JULIAN but laying flat comfortably/no leg edema or hypoxia to suggest CHF and will check lipid/A1c w/ AM labs for risk stratification and tx as indicated with close f/u PCP and ref to cards at [facility]. MOnitor BP w/ pain control, rec continued monitoring to eval hx HTN but appears stable present Keep mag/K replete, rec eliquis for DVT proph as above when deemed safe from surgery Can add lopressor IV if needed for rate but again never issues Plan DVT proph: SCDs in place, chemoproph as above once safe from surgery, recs eliquis BID DIspo: continued inpatient stay, NPO for surgery and rec ortho to put on monitored bed post-op given afib but appears controlled at present time/no need for further work-up at this time. Admission and Anticipated Discharge Date Admission Date: October 06, 2024 Subjective Eval this morning, laying flat in bed getting EKG, sister in room. Pain reasonable, does endorse not comfortable but wanting to wait til OR for now/hold off medications. Discussed to let him know if that changes, Remains afib, discussed hx/no issues bleeding but didn't have follow up. Unclear duration given NO sensation of his afib, no CP/SOB/palpitations and could be permanenet in nature but appears rate controlled at this time. No family hx afib. Discussed hx JULIAN, denies but does have some snoring when lays on his back. Discussed drinking, 6-8 beers on weekends occasionally with friends but no regular use/withdrawal hx and discussed avoiding as can also contribute. He did not have any issues with bleeding reported when on eliquis in the past and discussed messaged orthopedics about utilization for DVT proph post- operatively and that would recommend he have cardiology f/u [place] [facility]. No murmur/pitting edema to suggest CHF at this time. Questions/concerns addressed. Physical Exam 2 Physical Exam: General: 64yo obese male laying in bed, sister in room, NAD at rest but mild-mod discomfort to his RIGHT hip, not wanting medication at this time HEENT: head atraumatic, normocephalic, mm slightly dry, trachea midline Resp: even/unlabored, laying flat in bed, no cough/tachypnea, no wheezing/rales, slightly diminished in the bases bu 98% on RA CV: irregularly irregular, rates 70-80s, no pitting edema, pulses present, calves nontender GI: +BS, soft/obese, nontender huber in place, yellow urine draining MSK/Neuro: RIGHT LE shortened/externally rotated, did not take through ROM, +edema to right hip joint in region of fracture but no pitting LE edema/calf tenderness, sensation/pulse intact Psych: AOx3, cooperative with exam Results & Data Results & Data Vital Signs (Past 12 Hours) Vital Signs Temp Pulse Pulse Pulse Resp BP Pulse Ox 10/07/24 07:44 36.7 C 84 16 136/89 98 10/07/24 06:29 36.7 C 87 20 122/84 97 10/07/24 02:21 10/07/24 02:15 36.6 C 84 20 147/74 H 98 10/07/24 01:44 83 18 134/80 95 10/06/24 23:42 79 136/77 96 10/06/24 23:25 76 10/06/24 22:25 71 20 127/76 99 10/06/24 21:00 78 20 122/84 96 O2 Del Method 10/07/24 07:44 Room Air 10/07/24 06:29 Room Air 10/07/24 02:21 Room Air 10/07/24 02:15 Room Air 10/07/24 01:44 Room Air 10/06/24 23:42 Room Air 10/06/24 23:25 10/06/24 22:25 Room Air 10/06/24 21:00 Room Air Laboratory Results 10/07/24 07:34 10/07/24 09:15 N1 139 BUN/Cr 12/0.80 Mag 2.0 Diagnostic Findings Chest X-Ray 10/06/24 19:04 Exam(s): XR CXR 1 VIEW EXAM: XR Chest, 1 View CLINICAL HISTORY: Reason for exam: trauma. TECHNIQUE: Frontal view of the chest. COMPARISON: No relevant prior studies available. FINDINGS: Lungs: Unremarkable. No consolidation. Pleural space: Unremarkable. No pneumothorax. Heart: Unremarkable. No cardiomegaly. Mediastinum: Unremarkable. Normal mediastinal contour. Bones/joints: Unremarkable. No acute fracture. IMPRESSION: Normal chest x-ray. Electronically signed by: Domingo Perez MD 10/06/24 20:28 PM Hip X-Ray 10/06/24 19:04 Exam(s): XR HIP + PELVIS, 2-3 views EXAM: XR Left Hip With Pelvis When Performed, 2 or 3 Views CLINICAL HISTORY: Reason for exam: trauma. TECHNIQUE: Two or three views of the left hip with pelvis when performed. COMPARISON: No relevant prior studies available. FINDINGS: Bones/joints: Comminuted displaced angulated intertrochanteric left hip fracture. Femoral head maintains a normal anatomic relationship with the acetabulum. No dislocation. Soft tissues: Unremarkable. IMPRESSION: Comminuted displaced angulated intertrochanteric left hip fracture Electronically signed by: Domingo Perez MD 10/06/24 20:30 PM PG Care Time/CCT Total # of Minutes Spent Total Time Spent with Patient: Total time spent is greater than 50% in coordination of care (as documented) at patient's floor/unit and/or counseling patient: Coding Level of Care Code 97050 SUB INP/OBS CARE 3/50MIN Diagnoses Closed right hip fracture S72.001A Acute pain of right hip M25.551 Atrial fibrillation I48.91
[2024-10-07 08:20] LABS: Hematocrit (blood only) 37.2 % (42.0-52.0); Hemoglobin 12.7 g/dl (14.0-18.0); Mean Corpuscular Hemoglobin 33.9 pg (25.0-34.0); Mean Corpuscular Hgb Conc 34.1 g/dL (32.0-36.0); Mean Corpuscular Volume 99.2 fL (80.0-100.0); Mean Platelet Volume 10.3 fL (9.4-12.4); Platelet Count 220 K/uL (130-400); RDW Coefficient of Variation 12.5 % (11.5-14.5); RDW Standard Deviation 45.5 fL (36.4-46.3); Red Blood Count 3.75 M/uL (4.70-6.10); White Blood Count 9.24 K/ul (4.8-10.8)
[2024-10-07 08:45] LABS: Anion Gap 5 (3-11); Blood Urea Nitrogen 12 mg/dl (6-23); Calcium 8.4 mg/dl (8.6-10.3); Carbon Dioxide 26 mmol/L (21-32); Chloride 108 mmol/L (98-107); Creatinine Clr Calc Pharmacy 138.1 ml/min; Glucose 101 mg/dl (70-99(Fasting)); Sodium 139 mmol/L (136-145)
[2024-10-07] MEDS: ASCORBIC ACID 500 MG TAB PO SCH (08:49)
[2024-10-07] MEDS: CHOLECALCIFEROL 25 MCG (1000 UNITS) TAB PO SCH (08:49)
[2024-10-07] MEDS ORDERED: NON-FORMULARY MEDICATION (Vitamin E 268 mg (400 unit) Capsule) PO SCH (09:00)
[2024-10-07] MEDS ORDERED: LIDOCAINE 2% 2 ML VIAL/AMP(20MG/ML) INFIL ONE (13:33)
[2024-10-07] MEDS ORDERED: ONDANSETRON INJ 2 MG/ML 2 ML VIAL ONE (13:33)
[2024-10-07] MEDS ORDERED: PROPOFOL IV EMULSION 10 MG/ML 20 ML VIAL IV ONE ×2 (13:33→16:15)
[2024-10-07] MEDS ORDERED: MIDAZOLAM HCL 1 MG/ML 2ML VIAL ONE (13:34)
[2024-10-07] MEDS ORDERED: fentaNYL citrate PF 100 MCG/2 ML VIAL ONE ×2 (13:34→14:36)
[2024-10-07] MEDS ORDERED: ROCURONIUM BROMIDE 10 MG/ML 5 ML VIAL IV ONE ×2 (13:35→15:18)
[2024-10-07] MEDS ORDERED: ATROPINE SULFATE 0.1 MG/ML 10ML SYR IV PRN (13:48)
[2024-10-07] MEDS ORDERED: ePHEDrine sulfate 50 MG/ML AMP IV PRN (13:48)
[2024-10-07] MEDS: ceFAZolin 3000MG 3,000 MG/72.5 ML BAG IV SCH (14:34)
[2024-10-07] MEDS ORDERED: METOPROLOL TARTRATE 1 MG/ML VIAL IV ONE (15:06)
[2024-10-07] MEDS ORDERED: hydrALAZINE HCL 20 MG/ML VIAL IV PRN (15:07)
[2024-10-07] MEDS: TRANEXAMIC ACID / 0.7% NACL 1,000 MG/100 ML BAG IV SCH ×2 (15:53→18:36)
[2024-10-07] MEDS ORDERED: SUGAMMADEX SODIUM 200 MG/2 ML VIAL IV ONE (15:57)
[2024-10-07] MEDS: BUPIVACAINE 0.5 % 5 MG/1 ML MPF 30ML VIAL ONE (15:57)
[2024-10-07] MEDS: LIDOCAINE 1%/EPINEPHRINE 1:100,000 50 ML VIAL ONE (15:58)
--- NOTE | 2024-10-07 16:18 | Operative Report ---
Post Operative Report Pre & Post Diagnosis Operation Date: 10/07/24 07:00 Pre-Op Diagnosis: Right Intertrochanteric Hip Fracture Post-Op Diagnosis: Right Intertrochanteric Hip Fracture I identified the patient and participated in the time-out.: Yes Procedure Operation Date: 10/07/24 07:00 Actual Procedures p Open Reduction Internal Fixation Right Hip(Right) - David Brown MD Surgeon David Brown MD Senior Clinical Consultant Paige Pompa DO Estimated Blood Loss 30 Findings See Below Displaced right hip intertrochanteric fracture Fluids 700 cc Specimens n/a Drains Montero Anesthesia Type General Complications none Indications The patient is a 64 year old male who sustained a right hip fracture from a ground level fall. The patients treatment options of conservative versus surgical intervention were discussed. Since the patient was an ambulatory prior to the injury and to avoid the risks of bed sores, pulmonary complications, and to give the best chance for ambulation, I recommended surgery. The patient and family understands the risks of surgery, which include but are not limited to: bleeding, infection, re-operation, damage to nerves and arteries, continued pain, failure of the hardware, mal-union, non-union, DVT, and . In addition the patient is aware of the 20-30% morbidity associated with hip fracture for up to 1 year following a hip fracture. The patient and family understands all of these instructions and explanations, all of their questions have been satisfactorily addressed. The patient has elected to proceed with surgery and the informed consent was signed. Description of Procedure IMPLANTS: 1) 12 mm short Troch nail (Synthes). 2) 12 x 115 mm Helical screw. 3) 5 x 42 mm Locking screw. Procedure: The patient was taken to the Operating Room and placed in the supine position on the fracture table after spinal anesthesia was administered. A multidisciplinary time-out was performed identifying my initials on the right lower limb as the correct and operative limb. Prior to the incision being made, 3 grams of intravenous Ancef were given. Fluoroscopy was brought in to ensure adequate x-rays images could be obtained. A reduction was performed with traction, adduction, and internal rotation of the operative limb. Once this was confirmed with Fluro, the right lower extremity was prepped in the standard fashion. The trochanter was marked as was the planned incision and trajectory of the helical screw. The incisions were injected with a 50:50 mixture of 1% Lidocaine plain and 0.5% Bupivacaine with epinephrine for a total of 10cc. The planned incision proximal to the greater trochanter was made and carried down through the Tensor Fascia Paulina to expose the tip of the greater trochanter and the starting position. A starting guide wire was placed and the starting reamer was used to create the entry hole for the short implant. A size 12 was selected. The implant was then inserted without difficulty. A second incision was made for placement of the helical blade and distal locking screw. These were placed through the aiming guide in the standard fashion. The Helical blade was locked in place. The traction was released. Final x-rays were obtained showing TAD of less than 25mm. The wounds were copiously irrigated. The Tensor Fascia Paulina was closed with 0 Vicryl. The subcutaneous tissue was closed with 3-0 Vicryl. The skin was closed with douglas. The incisions were covered with Xeroform, 4x4s, Tegaderm. The patient was transfer to her hospital bed and taken to the PACU in stable condition. The sponge and needle counts were correct. Post-op Instructions:The patient was re-admitted to the Hospitalist service and to Telemetry due to his A-Fib. The patient will be WBAT with a walker. The patient will be seen by PT/OT. Labs will be checked in the am. DVT prophylaxis will be with TEDs, mechanical devices and Eliquis will be started. I attest to the content of the Intraoperative Record and any orders documented therein. Any exceptions are noted below.
--- NOTE | 2024-10-07 16:18 | Post Operative Brief Note ---
Immediate Post Op Note Date of Surgery October 07, 2024 Pre & Post Diagnosis Operation Date: 10/07/24 07:00 Pre-Op Diagnosis: Right Hip Fracture Post-Op Diagnosis: Right Hip Fracture I identified the patient and participated in the time-out.: Yes Procedure Operation Date: 10/07/24 07:00 Actual Procedures p Open Reduction Internal Fixation Right Hip(Right) - David Brown MD Surgeon David Brown MD Flavor Maker Paige Pompa DO Estimated Blood Loss 30 Findings Consistent with Post-Op Diagnosis Fluids 700 cc Drains Montero Catheter Anesthesia Type General Complications none
--- NOTE | 2024-10-07 16:39 | Operative Report ---
Post Operative Report Pre & Post Diagnosis Operation Date: 10/07/24 07:00 Pre-Op Diagnosis: Right Hip Fracture Post-Op Diagnosis: Right Hip Fracture I identified the patient and participated in the time-out.: Yes Procedure Operation Date: 10/07/24 07:00 Actual Procedures p Open Reduction Internal Fixation Right Hip(Right) - David Brown MD Surgeon David Brown MD Pattern Storage Clerk Paige Pompa DO Estimated Blood Loss 30 Findings Consistent with Post-Op Diagnosis Specimens None Description of Procedure Patient was brought to the operative suite where he underwent anesthesia. Right lower extremity was prepped and draped in usual sterile fashion. A surgical timeout was performed. The patient underwent a right intertrochanteric femur fracture reduction with cephalomedullary nailing. Please see Dr. Brown's operative report for full details. I was present and assisted with fracture reduction, surgical approach, hardware placement, postoperative wound closure. The patient was taken to the recovery room in satisfactory condition I attest to the content of the Intraoperative Record and any orders documented therein. Any exceptions are noted below.
[2024-10-07] MEDS: fentaNYL citrate PF 100 MCG/2 ML VIAL IV PRN (16:40)
[2024-10-07] MEDS: HYDROmorphone INJ 1 MG/ML SYRINGE IV PRN (17:00)
--- NOTE | 2024-10-07 17:41 | Anesthesiology Progress Note ---
Date of Service October 07, 2024 Anesthesia Post Procedure Vital Signs Vital Signs: Temp Pulse Pulse Pulse Resp BP BP 10/07/24 17:20 87 20 137/87 10/07/24 17:10 75 11 L 143/87 H 10/07/24 17:00 82 16 129/92 10/07/24 16:50 85 10 L 142/80 H 10/07/24 16:40 86 17 142/115 H 10/07/24 16:32 36.8 C 90 20 134/87 10/07/24 13:28 37.2 C 87 20 166/98 H 10/07/24 12:03 37.2 C 78 18 122/76 10/07/24 07:44 36.7 C 84 16 10/07/24 06:29 36.7 C 87 20 10/07/24 02:21 10/07/24 02:15 36.6 C 84 20 10/07/24 01:44 83 18 10/06/24 23:42 79 10/06/24 23:25 76 10/06/24 22:25 71 20 10/06/24 21:00 78 20 10/06/24 19:15 73 10/06/24 18:52 36.5 C 79 21 114/72 BP Pulse Ox O2 Del Method O2 Flow Rate 10/07/24 17:20 96 Nasal Cannula 4 10/07/24 17:10 96 Nasal Cannula 4 10/07/24 17:00 94 Nasal Cannula 4 10/07/24 16:50 95 Oxymask 10 10/07/24 16:40 95 Oxymask 10 10/07/24 16:32 94 Oxymask 10 10/07/24 13:28 99 Room Air 10/07/24 12:03 95 Room Air 10/07/24 07:44 136/89 98 Room Air 10/07/24 06:29 122/84 97 Room Air 10/07/24 02:21 Room Air 10/07/24 02:15 147/74 H 98 Room Air 10/07/24 01:44 134/80 95 Room Air 10/06/24 23:42 136/77 96 Room Air 10/06/24 23:25 10/06/24 22:25 127/76 99 Room Air 10/06/24 21:00 122/84 96 Room Air 10/06/24 19:15 10/06/24 18:52 94 Room Air Pain Intensity Right Hip: Pain Intensity: 7 Transfer of Care Handoff Completed per policy Notes Mental Status: alert / awake / arousable and participated in evaluation Patient Amnestic to Procedure: Yes Nausea / Vomiting: adequately controlled Pain: adequately controlled Airway Patency, RR, SpO2: stable & adequate BP & HR: stable & adequate Hydration State: stable & adequate Anesthetic Complications: no major complications apparent
--- NOTE | 2024-10-07 18:09 | XRay Report ---
EXAMINATION: X-ray pelvis 1-2 view routine CLINICAL HISTORY: Postop right hip PRIORS: None TECHNIQUE: AP view pelvis FINDINGS: Surgical hardware present in the right femoral head, neck and proximal diaphysis. Alignment is near anatomic. Overlying soft tissue swelling and small amount of subcutaneous gas noted, compatible with postoperative change. No soft tissue radiopaque foreign body. No fracture or dislocation. Pubic symphysis is unremarkable. IMPRESSION: Postoperative change of the right hip with near anatomic alignment. Electronically signed by Xochitl Johnson 10-07-2024 6:09 PM
[2024-10-07] MEDS: ceFAZolin 2000MG 2,000 MG/15 ML SYR IV SCH (21:47)
[2024-10-08 06:28] LABS: Basophils # (auto) 0.02 K/uL (0.00-0.20); Basophils % (auto) 0.2 %; Hematocrit (blood only) 37.6 % (42.0-52.0); Hemoglobin 12.9 g/dl (14.0-18.0); Immature Granulocytes # (auto) 0.03 K/uL (0.01-0.20); Immature Granulocytes % (auto) 0.3 %; Lymphocytes # (auto) 0.92 K/uL (1.20-3.40); Lymphocytes % (auto) 10.1 %; Mean Corpuscular Hemoglobin 33.9 pg (25.0-34.0); Mean Corpuscular Hgb Conc 34.3 g/dL (32.0-36.0); Mean Corpuscular Volume 98.9 fL (80.0-100.0); Monocytes # (auto) 1.03 K/uL (0.11-0.59); Monocytes % (auto) 11.3 %; Neutrophils # (auto) 7.12 K/uL (1.40-6.50); Neutrophils % (auto) 78.1 %; Platelet Count 176 K/uL (130-400); RDW Coefficient of Variation 12.3 % (11.5-14.5); RDW Standard Deviation 44.8 fL (36.4-46.3); White Blood Count 9.12 K/ul (4.8-10.8)
[2024-10-08 06:48] LABS: BUN Creatinine Ratio 10.1 (10-20); Calcium 8.8 mg/dl (8.6-10.3); Chol HDL Ratio 2.8 (0-5); Creatinine Clr Calc Pharmacy 139.7 ml/min; Magnesium 1.8 mg/dl (1.7-2.4); Potassium 4.4 mmol/L (3.5-5.1)
[2024-10-08 07:13] LABS: Folate (Folic Acid),Ser orPlas 11.02 ng/ml (>5.38)
[2024-10-08] MEDS: THIAMINE HCL 100 MG TAB PO SCH (08:14)
[2024-10-08] MEDS: FOLIC ACID 1 MG TAB PO SCH (08:14)
[2024-10-08] MEDS: CYANOCOBALAMIN (B-12) 500 MCG TABLET PO SCH (08:14)
[2024-10-08] MEDS: ACETAMINOPHEN 500 MG TAB PO PRN (08:22)
--- NOTE | 2024-10-08 08:49 | Fluoroscopy Report ---
FL hip RT 2-3V CLINICAL HISTORY: RT ORIF HIP TECHNIQUE: 4 views were obtained with the C-arm in the OR with the above procedure. Total fluoroscopy time was 80.9 seconds. Radiation dose was 39.44 mGy. Comparison: Comparison is made to hip radiographs 10/06/2024 FINDINGS/IMPRESSION: Intraoperative images were obtained of the right hip open reduction internal fix ation. Please correlate with intraoperative fluoroscopy and operative report. ACT 112: Negative or not required by law. Electronically signed by: Pradeep Madrigal M.D. 10/08/2024 8:48 AM
--- NOTE | 2024-10-08 09:34 | Orthopedic Progress Note ---
Date of Service October 08, 2024 Assessment & Plan (1) Status post-operative repair of closed hip fracture: Plan: Weightbearing as tolerated with walker assistance PT/OT Ice with easy wrap Dressings are clean dry and intact and left in place Pain control added p.o. medication DVT prophylaxis with ELAINE stockings and Eliquis Primary care per medicine service Patient will most likely need placement due to living by himself Case management eval Continue care per primary service Follow-up with [facility] orthopedics as scheduled With questions contact our clinic at [phone] Admission and Anticipated Discharge Date Admission Date: October 06, 2024 Subjective This 64-year-old male is day 1 status post right hip fracture fixation with trochanteric nailing. Patient states he is doing very well. He states his pain is well-controlled with p.o. pain medication he has been given. States his biggest issue is still unable to lift his leg off the bed and or bend his knee. Currently denies chest pain, shortness of breath, fever, chills, sweats, nausea, vomiting, diarrhea or numbness or tingling in his right lower extremity. Review of Systems Review of Systems: All systems reviewed & are unremarkable except as noted in Subjective Physical Exam Physical Exam: Right hip: Dressings are clean dry and intact and left in place. Patient is able to actively dorsi and plantarflex his foot without issue. His peripheral pulses are 2+. He was unable to perform an active straight leg raise test or actively flex his knee. Passively I was able to flex his knee to 80 degrees without significant discomfort. He did feel a pulling sensation with light passive internal and external hip rotation. He had no discomfort with logroll testing. He was neurovascularly intact in the right lower extremity. Results & Data Vital Signs (Past 12 Hours) Vital Signs Temp Pulse Pulse Resp BP Pulse Ox O2 Del Method 10/08/24 07:41 36.5 C 72 18 150/87 H 97 Room Air 10/08/24 07:28 79 10/08/24 03:03 36.6 C 77 20 138/86 95 Nasal Cannula 10/08/24 00:41 36.5 C 73 20 142/100 H 97 Nasal Cannula 10/07/24 23:31 36.5 C 79 20 131/80 93 Nasal Cannula 10/07/24 22:39 36.5 C 79 14 133/90 93 Room Air 10/07/24 22:10 36.8 C 80 18 132/79 95 Room Air 10/07/24 21:46 36.5 C 80 16 131/85 97 Nasal Cannula O2 Flow Rate 10/08/24 07:41 10/08/24 07:28 10/08/24 03:03 2 10/08/24 00:41 2 10/07/24 23:31 2 10/07/24 22:39 10/07/24 22:10 10/07/24 21:46 2 Diagnostic Findings Laboratory Results WBC 9.12 K/ul (4.8-10.8) 10/08/24 06:05 RBC 3.80 M/uL (4.70-6.10) L 10/08/24 06:05 Hgb 12.9 g/dl (14.0-18.0) L 10/08/24 06:05 Hct 37.6 % (42.0-52.0) L 10/08/24 06:05 MCV 98.9 fL (80.0-100.0) 10/08/24 06:05 MCH 33.9 pg (25.0-34.0) 10/08/24 06:05 MCHC 34.3 g/dL (32.0-36.0) 10/08/24 06:05 RDW Std Deviation 44.8 fL (36.4-46.3) 10/08/24 06:05 RDW Coeff of Pita 12.3 % (11.5-14.5) 10/08/24 06:05 Plt Count 176 K/uL (130-400) 10/08/24 06:05 MPV 10.0 fL (9.4-12.4) 10/08/24 06:05 Immature Gran % (Auto) 0.3 % 10/08/24 06:05 Neut % (Auto) 78.1 % 10/08/24 06:05 Lymph % (Auto) 10.1 % 10/08/24 06:05 Talbot % (Auto) 11.3 % 10/08/24 06:05 Eos % (Auto) 0.0 % 10/08/24 06:05 Baso % (Auto) 0.2 % 10/08/24 06:05 Neut # (Auto) 7.12 K/uL (1.40-6.50) H 10/08/24 06:05 Lymph # (Auto) 0.92 K/uL (1.20-3.40) L 10/08/24 06:05 Talbot # (Auto) 1.03 K/uL (0.11-0.59) H 10/08/24 06:05 Eos # (Auto) 0.00 K/uL (0.00-0.50) 10/08/24 06:05 Baso # (Auto) 0.02 K/uL (0.00-0.20) 10/08/24 06:05 Immature Gran # (Auto) 0.03 K/uL (0.01-0.20) 10/08/24 06:05 PT 10.9 Seconds (9.0-12.0) 10/06/24 19:04 INR 1.0 (0.9-1.1) 10/06/24 19:04 Sodium 137 mmol/L (136-145) 10/08/24 06:05 Potassium 4.4 mmol/L (3.5-5.1) 10/08/24 06:05 Chloride 107 mmol/L (98-107) 10/08/24 06:05 Carbon Dioxide 23 mmol/L (21-32) 10/08/24 06:05 Anion Gap 7 (3-11) 10/08/24 06:05 BUN 8 mg/dl (6-23) 10/08/24 06:05 Creatinine 0.79 mg/dl (0.6-1.4) 10/08/24 06:05 Est Cr Clr Drug Dosing 139.7 ml/min 10/08/24 06:05 eGFR 99.82 10/08/24 06:05 BUN/Creatinine Ratio 10.1 (10-20) 10/08/24 06:05 Glucose 130 mg/dl (70-99(Fasting)) H 10/08/24 06:05 Calcium 8.8 mg/dl (8.6-10.3) 10/08/24 06:05 Magnesium 1.8 mg/dl (1.7-2.4) 10/08/24 06:05 Total Bilirubin 0.3 mg/dl (0.2-1.0) 10/06/24 19:04 AST 24 U/L (13-39) 10/06/24 19:04 ALT 32 U/L (7-52) 10/06/24 19:04 Alkaline Phosphatase 69 U/L (34-104) 10/06/24 19:04 Total Protein 7.2 gm/dl (6.0-8.3) 10/06/24 19:04 Albumin 4.1 gm/dl (3.4-5.0) 10/06/24 19:04 Globulin 3.1 gm/dl (2.5-4.0) 10/06/24 19:04 Albumin/Globulin Ratio 1.3 (0.9-2) 10/06/24 19:04 Triglycerides 122 mg/dl (0-150) 10/08/24 06:05 Cholesterol 147 mg/dl (0-200) 10/08/24 06:05 LDL Cholesterol, Calc 70 mg/dl 10/08/24 06:05 VLDL Cholesterol, Calc 24 mg/dl (0-30) 10/08/24 06:05 HDL Cholesterol 53 mg/dl 10/08/24 06:05 Cholesterol/HDL Ratio 2.8 (0-5) 10/08/24 06:05 Vitamin B12 88 pg/ml (180-914) L 10/08/24 06:05 25-OH Vitamin D Total 19.5 ng/ml (30-100) L 10/08/24 06:05 Folate 11.02 ng/ml (>5.38) 10/08/24 06:05 TSH 2.770 uIu/ml (0.300-4.500) 10/06/24 19:04 Impressions Chest X-Ray 10/06/24 19:04 Exam(s): XR CXR 1 VIEW EXAM: XR Chest, 1 View CLINICAL HISTORY: Reason for exam: trauma. TECHNIQUE: Frontal view of the chest. COMPARISON: No relevant prior studies available. FINDINGS: Lungs: Unremarkable. No consolidation. Pleural space: Unremarkable. No pneumothorax. Heart: Unremarkable. No cardiomegaly. Mediastinum: Unremarkable. Normal mediastinal contour. Bones/joints: Unremarkable. No acute fracture. IMPRESSION: Normal chest x-ray. Electronically signed by: Domingo Perez MD 10/06/24 20:28 PM Hip X-Ray 10/07/24 12:00 FL hip RT 2-3V CLINICAL HISTORY: RT ORIF HIP TECHNIQUE: 4 views were obtained with the C-arm in the OR with the above procedure. Total fluoroscopy time was 80.9 seconds. Radiation dose was 39.44 mGy. Comparison: Comparison is made to hip radiographs 10/06/2024 FINDINGS/IMPRESSION: Intraoperative images were obtained of the right hip open reduction internal fixation. Please correlate with intraoperative fluoroscopy and operative report. ACT 112: Negative or not required by law. Electronically signed by: Pradeep Madrigal M.D. 10/08/2024 8:48 AM Pelvis X-Ray 10/07/24 16:23 EXAMINATION: X-ray pelvis 1-2 view routine CLINICAL HISTORY: Postop right hip PRIORS: None TECHNIQUE: AP view pelvis FINDINGS: Surgical hardware present in the right femoral head, neck and proximal diaphysis. Alignment is near anatomic. Overlying soft tissue swelling and small amount of subcutaneous gas noted, compatible with postoperative change. No soft tissue radiopaque foreign body. No fracture or dislocation. Pubic symphysis is unremarkable. IMPRESSION: Postoperative change of the right hip with near anatomic alignment. Electronically signed by Xochitl Johnson 10-07-2024 6:09 PM
[2024-10-08 13:21] LABS: Estimated Average Glucose 117 mg/dl; Hemoglobin A1C 5.7 % (4.5-5.6)
[2024-10-08] MEDS: oxyCODONE HCL IR 5 MG TAB (IMMEDIATE RELEASE) PO STA (15:32)
--- NOTE | 2024-10-08 17:04 | Hospitalist Progress Note ---
Date of Service October 08, 2024 Assessment & Plan (1) Closed right hip fracture: Plan: 64-year-old male with PMHx paroxysmal A-fib (not anticoagulated), who presented to ED s/p ground-level fall. No syncope and reported tripping and do not suspect related to afib and rates controlled/not on any medications and electrolytes stable. CXR negative Hip x-ray on admission revealed displaced angulated intertrochanteric fracture of the RIGHT femur S/p ORIF right hip 10/07/[address] Brown. Hemoglobin stable at 12.9, continue to monitor Continue pain regimen - currently, patient has no pain at rest but significant pain with activity/transfers PT/OT recommending short-term rehab, patient agreeable Started Eliquis 10/08 per recommendations from Ortho. Also using TEDs bilaterally Labs in AM (2) Atrial fibrillation: Plan: Hx noted pre-op for screening for ORIF as above -- incidental finding during pre op workup for hernia surgery 09/2023. PCP prescribed Eliquis, referred to cardiology and he reports never having followed up and only took 1 month. No palpitations/sensation, never symptomatic. Not on any rate controlling meds at home TSH wnl, mag and K WNL with stable renal function [id number] score 0 = 0.2% stroke risk per year; HAS-BLED score 0 = 0.9% risk for major bleeding A1c 5.7%, lipid panel WNL, no peripheral edema or hypoxia to suggest CHF Suspect possible underlying JULIAN -- F/u PCP and ref to cards at tx Started Eliquis 5 mg BID 10/08/2024 Can add lopressor IV if needed for rate but again never issues Plan Reviewed telemetry Started Eliquis Vitamin B12 and vitamin D levels low, started on supplementation which is to continue on discharge CODE STATUS: Full code DVT proph: Teds, Eliquis twice daily Dispo: continued inpatient stay while awaiting rehab placement and further pain management control Admission and Anticipated Discharge Date Admission Date: October 06, 2024 Supervising Physician Co-Signing Physician Notes Attending Attestation - Chart reviewed, care plan d/w LAILA Mark. I agree w/ the cosme components of her documentation. Bakari Rand MD Subjective Patient seen and evaluated in bedside chair. He reports some pain isolated to his right hip, but states this is decently controlled with medication. He states the pain is the worst with activity, and really no discomfort at rest. He denies any radiating symptoms down his right leg. He denies headache, shortness of breath, chest pain, nausea, vomiting. We discussed that PT is recommending short-term rehab, which he is agreeable to. Physical Exam Physical Exam: General: No acute distress, nondiaphoretic, well-developed, well-nourished. Cardiac: Irregularly irregular in the 80s without murmurs gallops or rubs. Pulm: Diminished at bases but otherwise clear to auscultation without wheezes, rales or rhonchi. No respiratory distress. 96% on room air. Abdominal: Soft, nontender, distended secondary to body habitus. Bowel sounds present. Neuro: A&O x3. No focal neurological deficits. Extremities: Dressing to right hip clean, dry, intact. Sensation intact to light touch in lower extremities bilaterally. Normal dorsiflexion and plantarflexion bilaterally. Pedal pulses present bilaterally. Results & Data Results & Data Vital Signs (Past 12 Hours) Vital Signs Temp Pulse Pulse Resp BP Pulse Ox Pulse Ox 10/08/24 15:54 81 10/08/24 15:00 97.5 F L 85 18 156/88 H 96 10/08/24 13:30 97 10/08/24 11:43 98.1 F 72 18 125/79 96 10/08/24 07:41 97.7 F 72 18 150/87 H 97 10/08/24 07:28 79 O2 Del Method O2 Flow Rate 10/08/24 15:54 10/08/24 15:00 Room Air 10/08/24 13:30 0 10/08/24 11:43 Room Air 10/08/24 07:41 Room Air 10/08/24 07:28 Laboratory Results Reviewed CBC Reviewed chemistries PG Care Time/CCT Total # of Minutes Spent Total Time Spent with Patient: Total time spent is greater than 50% in coordination of care (as documented) at patient's floor/unit and/or counseling patient: Coding Level of Care Code 17898 SUB INP/OBS CARE 3/50MIN Diagnoses Closed right hip fracture S72.001A Atrial fibrillation I48.91
[2024-10-08] MEDS: APIXABAN 5 MG TABLET PO SCH (20:34)
--- NOTE | 2024-10-09 05:39 | Electrocardiogram Report ---
Test Reason : Blood Pressure : */* mmHG Vent. Rate : 82 BPM Atrial Rate : * BPM P-R Int : * ms QRS Dur : 82 ms QT Int : 400 ms P-R-T Axes : * 52 44 degrees QTcB Int : 467 ms Atrial fibrillation Abnormal ECG When compared with ECG of 06-Oct-2023 10:39, No significant change Confirmed by Fernandez Rogel ([id number]) on 10/09/2024 5:39:11 AM Referred By: REFERRED SELF Confirmed By: Fernandez Rogel
--- NOTE | 2024-10-09 06:01 | Electrocardiogram Report ---
Test Reason : Blood Pressure : */* mmHG Vent. Rate : 86 BPM Atrial Rate : 227 BPM P-R Int : * ms QRS Dur : 88 ms QT Int : 396 ms P-R-T Axes : * 69 54 degrees QTcB Int : 473 ms Atrial fibrillation Abnormal ECG When compared with ECG of 06-Oct-2024 23:56, No significant change was found Confirmed by Fernandez Rogel ([id number]) on 10/09/2024 6:01:15 AM Referred By: REFERRED SELF Confirmed By: Fernandez Rogel
[2024-10-09 06:31] LABS: Hematocrit (blood only) 35.3 % (42.0-52.0); Hemoglobin 12.2 g/dl (14.0-18.0); Mean Corpuscular Hemoglobin 34.5 pg (25.0-34.0); Mean Corpuscular Hgb Conc 34.6 g/dL (32.0-36.0); Mean Corpuscular Volume 99.7 fL (80.0-100.0); Mean Platelet Volume 10.3 fL (9.4-12.4); Platelet Count 163 K/uL (130-400); RDW Coefficient of Variation 12.3 % (11.5-14.5); RDW Standard Deviation 45.1 fL (36.4-46.3); Red Blood Count 3.54 M/uL (4.70-6.10); White Blood Count 7.88 K/ul (4.8-10.8)
--- NOTE | 2024-10-09 08:07 | Hospitalist Progress Note ---
Date of Service October 09, 2024 Assessment & Plan (1) Closed right hip fracture: Plan: 64-year-old male with PMHx paroxysmal A-fib (not anticoagulated), who presented to ED s/p ground-level fall. No syncope and reported tripping and do not suspect related to afib and rates controlled/not on any medications and electrolytes stable. CXR negative Hip x-ray on admission revealed displaced angulated intertrochanteric fracture of the RIGHT femur S/p ORIF right hip 10/07/[address] Brown. Hemoglobin stable at 12.2, continue to monitor especially since Eliquis was just started postop Pain was initially only with activity/transfers, however now he also has modera te-severe pain even at rest -- Continue morphine 2 mg IV Q3H PRN for mild pain/pre-PT, morphine 4 mg IV Q3H PRN for moderate-severe pain Will add oxycodone 5 mg PO Q4H PRN for breakthrough pain PT/OT recommending short-term rehab, patient agreeable. Accepted at [facility], anticipate discharge there 10/10/2024 Started Eliquis 10/08 per recommendations from Ortho. Also using TEDs bilaterally Labs in AM (2) Atrial fibrillation: Plan: Incidentally discovered during preop workup for hernia surgery in September 2023. PCP had prescribed Eliquis and patient was referred to cardiology at that time. He reports never having followed up and only took 1 month of Eliquis. Completely asymptomatic. Not on any rate controlling meds at home [id number] score 0 = 0.2% stroke risk per year; HAS-BLED score 0 = 0.9% risk for major bleeding A1c 5.7%, lipid panel WNL, no peripheral edema or hypoxia to suggest CHF. TSH wnl, mag and K WNL with stable renal function Suspect possible underlying JULIAN -- F/u PCP and referral to cardiology on discharge Started Eliquis 5 mg BID 10/08/2024, hgb remaining stable Plan Reviewed telemetry Started oxycodone for breakthrough pain Vitamin B12 and vitamin D levels low, started on supplementation which is to continue on discharge CODE STATUS: Full code DVT proph: Teds, Eliquis twice daily Dispo: Accepted at [facility], anticipate discharge 10/10/24 Admission and Anticipated Discharge Date Admission Date: October 06, 2024 Supervising Physician Co-Signing Physician Notes Attending Attestation - Chart reviewed, care plan d/w LAILA Mark. I agree w/ the cosme components of her documentation. Bakari Rand MD Subjective Patient seen and evaluated at bedside. He reports that he is currently feeling well. Earlier this morning however, he had severe pain in his right hip radiating down his right lower extremity. He states this was worst when bearing weight. He believes this was due to "going too hard too fast yesterday." Currently, he rates his pain at 1/10 while laying in bed. We discussed that he likely can be discharged to [facility] for further rehab tomorrow, 10/10/2024. No additional complaints or concerns at this time. Physical Exam Physical Exam: General: No acute distress, nondiaphoretic, well-developed, class 3 obesity. Cardiac: Irregularly irregular in the 70s without murmurs gallops or rubs. Pulm: Diminished at bases but otherwise clear to auscultation without wheezes, rales or rhonchi. No respiratory distress. 96% on room air. Abdominal: Soft, nontender, distended secondary to body habitus. Bowel sounds present. Neuro: A&O x3. No focal neurological deficits. Extremities: Dressing to right hip clean, dry, intact. Sensation intact to light touch in lower extremities bilaterally. Normal dorsiflexion and plantarflexion bilaterally. Pedal pulses present bilaterally. Calves nontender bilaterally. Results & Data Results & Data Vital Signs (Past 12 Hours) Vital Signs Temp Pulse Pulse Resp BP Pulse Ox O2 Del Method 10/09/24 07:37 98.4 F 60 18 120/76 94 Room Air 10/09/24 07:05 75 10/09/24 04:45 97.7 F 60 20 131/82 96 Room Air 10/09/24 00:16 97.7 F 74 20 131/78 95 Room Air 10/08/24 21:48 73 Laboratory Results Reviewed CBC PG Care Time/CCT Total # of Minutes Spent Total Time Spent with Patient: Total time spent is greater than 50% in coordination of care (as documented) at patient's floor/unit and/or counseling patient: Coding Level of Care Code 80065 SUB INP/OBS CARE 3/50MIN Diagnoses Closed right hip fracture S72.001A Atrial fibrillation I48.91
--- NOTE | 2024-10-09 11:29 | Orthopedic Progress Note ---
Date of Service October 09, 2024 Assessment & Plan (1) Status post-operative repair of closed hip fracture: Plan: POD #2-status post ORIF right hip with Dr. Brown Weightbearing as tolerated with walker assistance PT/OT Ice with easy wrap Dressings are clean dry and intact and left in place Pain control added p.o. medication DVT prophylaxis with ELAINE stockings and Eliquis Encouraged him to do exercises when sitting in his chair. Primary care per medicine service Case management - Placement pending Continue care per primary service Dressings changed to right hip today. New Xeroform, 4 x 4's and Tegaderm were applied. Okay to shower with this dressing in place. Reinforce or redress as needed. May leave in place until follow-up appointment Findings discussed with Dr. Brown. Follow-up with [facility] orthopedics as scheduled With questions contact our clinic at [phone]. Admission and Anticipated Discharge Date Admission Date: October 06, 2024 Subjective Patient sitting up in a chair. States that he is "slow going". He is able to take a few steps. It is very painful to bear weight on the right leg. He states he has been using a walker. He feels that he needs inpatient rehab as he does live alone. He states that he would be able to find someone to stay at home with him but does not feel like they will be very beneficial in helping him get up. He has no pain at rest. Physical Exam Musculoskeletal: Exam of his right hip: His postoperative dressings are clean, dry and intact. No significant drainage. These were removed today and the incisions were clean, dry and intact. Anna are retained. No active drainage. Mild edema of the right buttock and thigh area. Mild surrounding ecchymosis around the proximal incision. Nontender around the incision with palpation. No underlying seroma or hematoma. The distal incision is also clean, dry and intact with no significant ecchymosis. No distal edema noted in the right lower extremity. ELAINE stockings in place. Dorsalis pedis pulses 1+. Full ankle range of motion with normal strength. Calves are supple and nontender with palpation. He is able to extend his right leg and flex his right knee to about 90 degrees. He does have discomfort with any type of passive of active range of motion of the right hip. Results & Data Vital Signs (Past 12 Hours) Vital Signs Temp Pulse Pulse Resp BP Pulse Ox O2 Del Method 10/09/24 07:37 36.9 C 60 18 120/76 94 Room Air 10/09/24 07:05 75 10/09/24 04:45 36.5 C 60 20 131/82 96 Room Air 10/09/24 00:16 36.5 C 74 20 131/78 95 Room Air Laboratory Results 10/09/24 10/08/24 Range/Units 05:51 06:05 WBC 7.88 (4.8-10.8) K/ul RBC 3.54 L (4.70-6.10) M/uL Hgb 12.2 L (14.0-18.0) g/dl Hct 35.3 L (42.0-52.0) % MCV 99.7 (80.0-100.0) fL MCH 34.5 H (25.0-34.0) pg MCHC 34.6 (32.0-36.0) g/dL RDW Std Deviation 45.1 (36.4-46.3) fL RDW Coeff of Pita 12.3 (11.5-14.5) % Plt Count 163 (130-400) K/uL MPV 10.3 (9.4-12.4) fL Estimat Average Glucose 117 mg/dl Hemoglobin A1c 5.7 H (4.5-5.6) %
[2024-10-10] MEDS: oxyCODONE HCL IR 5 MG TAB (IMMEDIATE RELEASE) PO PRN (02:49)
[2024-10-10] MEDS: MAGNESIUM HYDROXIDE SUSP 30 ML UDC PO PRN (06:48)
[2024-10-10 07:26] VITALS: RESP 16
[2024-10-10 07:47] LABS: Hematocrit (blood only) 35.5 % (42.0-52.0); Hemoglobin 12.4 g/dl (14.0-18.0); Mean Corpuscular Hemoglobin 34.4 pg (25.0-34.0); Mean Corpuscular Hgb Conc 34.9 g/dL (32.0-36.0); Mean Corpuscular Volume 98.6 fL (80.0-100.0); Mean Platelet Volume 10.3 fL (9.4-12.4); Platelet Count 201 K/uL (130-400); RDW Standard Deviation 43.8 fL (36.4-46.3); White Blood Count 6.87 K/ul (4.8-10.8)
[2024-10-10 07:58] LABS: Calcium 9.1 mg/dl (8.6-10.3); Creatinine Clr Calc Pharmacy 136.4 ml/min; Potassium 3.9 mmol/L (3.5-5.1)
--- NOTE | 2024-10-10 09:56 | Orthopedic Progress Note ---
Date of Service October 10, 2024 Assessment & Plan (1) Status post-operative repair of closed hip fracture: Plan: POD #3-status post ORIF right hip with Dr. Brown Patient will be discharged to [facility] today. Dressing was changed yesterday. It is dry today. This can be changed or reinforced on an as-needed basis and the patient can shower with the dressings in place. Dressing can be left in place until follow-up appointment if there are no problems with it. Weightbearing as tolerated with walker assistance PT/OT Ice with easy wrap Pain control added p.o. medication DVT prophylaxis with ELAINE stockings and Eliquis He can do exercises when sitting in his chair. Dr. Brown notified. Follow-up with [facility] orthopedics as scheduled With questions contact our clinic at [phone]. Admission and Anticipated Discharge Date Admission Date: October 06, 2024 Subjective Patient seen in bed today. He was notified that he will be discharged today [facility] today. He has no concerns and is doing well. Denies any chest pain or shortness of breath. No numbness or tingling in toes. Physical Exam Constitutional: Patient resting comfortably in bed. In no distress. Pleasant. Cardiovascular: Right PT pulse 2+ Musculoskeletal: Right lower extremity: Proximal and distal dressings are clean, dry, intact. No surrounding ecchymosis or erythema. No soft tissue induration. Patient unable to perform straight leg raise. Able to actively flex the knee to about 90 degrees with a heel slide. Strength 5/5 with ankle plantarflexion and dorsiflexion. Moves all toes. Calf nontender. Skin: [place], warm, dry Neurologic: No sensory deficits in right lower extremity to light touch Results & Data Vital Signs (Past 12 Hours) Vital Signs Temp Pulse Pulse Resp BP Pulse Ox O2 Del Method 10/10/24 07:45 Room Air 10/10/24 07:25 98.4 F 89 16 132/78 96 Room Air 10/10/24 07:00 92 H 10/10/24 03:40 97.9 F 84 20 131/89 96 Room Air 10/09/24 23:50 98.1 F 73 18 129/82 96 Room Air 10/09/24 23:00 83 Laboratory Results 10/10/24 07:13 WBC 6.87 RBC 3.60 L Hgb 12.4 L Hct 35.5 L MCV 98.6 MCH 34.4 H MCHC 34.9 RDW Std Deviation 43.8 RDW Coeff of Pita 12.0 Plt Count 201 MPV 10.3 Sodium 136 Potassium 3.9 Chloride 104 Carbon Dioxide 25 Anion Gap 7 BUN 13 Creatinine 0.81 Est Cr Clr Drug Dosing 136.4 eGFR 99.07 BUN/Creatinine Ratio 16.0 Glucose 107 H Calcium 9.1
[2024-10-10 11:24] VITALS: PULSE 94; TEMP 97.2; O2SAT 97
[2024-10-10 12:20] VITALS: BP 146/88
--- NOTE | 2024-10-10 15:41 | Discharge Summary ---
Discharge Summary Date of Service October 10, 2024 Principal Dx & Hospital Course #1 = Principal Diagnosis (1) Closed right hip fracture: 64-year-old male with PMHx paroxysmal A-fib (not anticoagulated prior to admission), who presented to ED s/p ground-level fall. No syncope and reported tripping and do not suspect related to afib and rates controlled/not on any medications and electrolytes stable. CXR negative Hip x-ray on admission revealed displaced angulated intertrochanteric fracture of the RIGHT femur S/p ORIF right hip 10/07/[address] Brown. Hemoglobin stable postoperatively Pain control: Tylenol for moderate pain, oxycodone 5 mg for moderate pain, oxycodone 10 mg for severe pain Started Eliquis 10/08 per recommendations from Ortho. Also TEDs bilaterally Vit D level low at 19.5, started on Vit D3 50 mcg daily supplementation Discharged to [facility] 10/10 (2) Atrial fibrillation: Incidentally discovered during preop workup for hernia surgery in September 2023. PCP had prescribed Eliquis and patient was referred to cardiology at that time. He reports never having followed up and only took 1 month of Eliquis. Completely asymptomatic. Not on any rate controlling meds at home [id number] score 0 = 0.2% stroke risk per year; HAS-BLED score 0 = 0.9% risk for major bleeding A1c 5.7%, lipid panel WNL, no peripheral edema or hypoxia to suggest CHF. TSH wnl, mag and K WNL with stable renal function Suspect possible underlying JULIAN -- F/u PCP outpatient Started Eliquis 5 mg BID 10/08/2024, hgb remained stable Plan Dispo: Discharged to [facility] 10/10/24 Notes For Next Care Provider Recommend evaluation for underlying JULIAN Ensure Eliquis is continued given A-fib. Appears that patient took 1 month of Eliquis when A-fib was discovered on preop workup in September 2023, but did not continue taking this since then. Medication Changes From Visit Started Eliquis 5 mg twice daily Supplements for vitamin D, vitamin B12, folic acid, thiamine Admission HPI Per Admitting Provider 64-year-old male PMHx paroxysmal A-fib not currently anticoagulated who presents to ED s/p ground-level fall. States that he had tripped over an exercise ball or map when getting out of bed this morning, hit his right elbow on a mirror, and then landed on his right hip. Did not strike his head. Was unable to get up by himself. Patient states that the L hip is causing him pain, currently rating it 7-8/10 on the pain scale. States he did not have any symptoms prior to this fall such as dizziness, chest pain, shortness of breath. Does have chronic abdominal pain at sight of hernia (RLQ/groin), but otherwise stable. Otherwise denying chest pain, shortness of breath, palpitations, worsening abdominal pain, N/V/D/C, numbness/tingling, or LUTS. Of note, patient was previously dx w/ Afib and started on anticoag by PCP, was encouraged to follow up with monitor technician. Pt admits that he canceled this appointment and never followed up. Was on eliquis until prescription ran out in beginning of 2023. Was previously identified during pre-op assessment for hernia repair which was never completed. Please see Dr. Kendall's attestation for adjustments/additions to treatment plan. Discharge Exam General: No acute distress, nondiaphoretic, well-developed, class 3 obesity. Cardiac: Irregularly irregular in the 80s without murmurs gallops or rubs. Pulm: Diminished at bases but otherwise clear to auscultation without wheezes, rales or rhonchi. No respiratory distress. 97% on room air. Abdominal: Soft, nontender, distended secondary to body habitus. Bowel sounds present. Neuro: A&O x3. No focal neurological deficits. Extremities: Dressing to right hip clean, dry, intact. Sensation intact to light touch in lower extremities bilaterally. Normal dorsiflexion and plantarflexion bilaterally. Pedal pulses present bilaterally. Calves nontender bilaterally. Discharge Plan Discharge Items Patient Disposition: Transfer Acute Care Hospital Reason For Visit: HIP FRACTURE Discharge Diagnosis: Right hip fracture from mechanical fall s/p ORIF right hip Activity: Per Instructions section Non-emergency contact: Primary Care Provider and Surgeon Call non-emergency contact if: you have any medication questions and your symptoms worsen Follow-up/Referrals: Wilson Downs CRNP [Primary Care Provider] - (Follow-up in 1-2 weeks) Kim Pool PA-C [Physician Electrician Helper] - 10/23/24 10:30 am Diet: Regular Addtl Attending Provider Instructions: Mr. Shankar, Julio César were admitted to the hospital due to a right hip fracture after a fall. You had an open reduction internal fixation (ORIF) of your right hip with Dr. Brown on 10/07/2024. You tolerated the surgery well. It was also noted that you have atrial fibrillation on exam/EKG, which does not appear to be new for you. However, you are not on any treatment for this prior to this hospitalization which increases the risk of stroke. We have started you on Eliquis (blood thinner) twice daily to prevent clots following surgery, but also to prevent a stroke from A-fib. Atrial fibrillation is a condition in which the heart beats in an irregular pattern. It is the most common abnormal heart rhythm. It is caused by a problem in the heart electrical pathways within the muscle of the upper chambers of the heart (atria). Because the atria are not sharon normally, blood may pool in the atria instead of moving into the ventricles (the lower chambers of the heart). This can increase the risk for blood clots and stroke. Heart palpitations are a common symptom of atrial fibrillation. This is the feeling that your heart is fluttering, or beating too fast, hard, or irregular. When the heart beats too fast, it does not pump blood very well. This can cause other symptoms, such as anxiety, fatigue, shortness of breath, chest pain, dizziness, or fainting. Upon discharge from the hospital: * Follow orthopedics instructions as listed below. * Take Tylenol 1000 mg every 8 hours as needed for pain. Use this as your first-line pain medication. * Take oxycodone 5-10 mg every 4 hours as needed for pain. Use this as your second line pain medication. * Continue Eliquis (blood thinner) 5 mg by mouth twice daily. * Take Vit D supplementation 50 mcg daily. * Take daily supplementation of vitamin B12, folic acid, and thiamine. * Follow any further discharge instructions from [facility]. * Follow-up with orthopedics. Your appointment is scheduled for 10/23/2024 at 10:30 AM. * Follow-up with your PCP in 1-2 weeks. Please return to the hospital if any of these occur: Increased swelling/pain at surgery site, shortness of breath or trouble breathing, passing out, uncontrolled bleeding, heartbeat that is irregular/very fast or slow compared w ith your normal heartbeat, chest pain or pressure, extreme drowsiness or confusion, numbness or weakness in your arms, legs, or face, or trouble speaking or seeing, or any other symptoms concerning for you. It was a pleasure taking care of you while you were in the hospital, Damaris Mark PA-C Addtl Machine Filler Servicer Provider Instructions: ORTHOPEDIC DISCHARGE INSTRUCTIONS -Weight bearing as tolerated with walker to assist in ambulation -Please do rehab exercises as instructed, gentle range of motion of the hip as tolerated -Frequently ice, at least 20 minutes 5 times a day. -You may shower on Post op Day 3 -Dressing change as needed -DVT prophylaxis: Per primary -Pain control: Per primary -Follow up in 2 weeks with [facility] for post op evaluation and suture removal. Please call our office sooner @ [phone] if you have any questions or concerns Pending Studies at Discharge: No Stand-Alone Forms: My [facility] Skilled Items Patient informed of condition?: Yes DNR: No Discharge Level of Care: Acute rehab Communicable Disease: No Discharge Prognosis: Stable Lines: None Urinary Catheter: No Medications and DC Order Prescriptions: New acetaminophen [Tylenol Extra Strength] 500 mg Tablet 1,000 mg PO Q8H PRN (Reason: fever or pain) Qty: 30 0RF Eliquis 5 mg Tablet 5 mg PO BID Qty: 60 0RF oxycodone 5 mg Tablet 5 - 10 mg PO Q4H PRN (Reason: moderate-severe pain) Qty: 14 0RF thiamine HCl (vitamin B1) 100 mg Tablet 100 mg PO QAM Qty: 30 0RF cyanocobalamin (vitamin B-12) 500 mcg Tablet 500 mcg PO QAM Qty: 30 0RF folic acid 1 mg Tablet 1 mg PO QAM Qty: 30 0RF cholecalciferol (vitamin D3) 50 mcg (2,000 unit) capsule 50 mcg PO DAILY 30 Days Qty: 30 0RF Continued ascorbic acid (vitamin C) 500 mg tablet 500 mg PO QAM vitamin E 268 mg (400 unit) Capsule 268 mg PO DAILY cholecalciferol (vitamin D3) [Vitamin D3] 25 mcg (1,000 unit) Tablet 25 mcg PO DAILY Discharge Orders: Discharge Order (Routine); Ordered 10/10/24 Ordered By: Damaris Mark Admission Data Admit Date/Time: 10/06/24 22:30 Attending Provider: Bakari Rand Admit Provider: Maurice Conteh Primary Care Provider: Wilson Downs. Other Providers: [facility]; [facility]; [facility]; David Brown A; Margaret Kendall; Iliana Agudelo; Lisa Cervantes; Laurie Jama; Deena Bright; Hua Srivastava; Jeffrey Dorantes; Riky Tavarez; Ariel ibanez,Franki Crystal; Barbara Thompson; Prosper Marion; Shola Blum; Donn Rucker; Mariluz Schreiber; Juancarlos Alejandro; Claudia Alejandro; Serafin Pereira; Caroline Juarez; Rod Whitten; Ana Tompkins; Ngozi Kelly; Sunday Brower; Margaret Moore; Caitie Menjivar; Roma Guillen; Naty Farmer; Liu Farmer V; Barrera Tucker; Lisa Jones; Saroj Desai; Mela Morgan; Liu Livingston; Bobby Schreiber; Pradeep Arias; Ofelia Lyles; Radha Spicer; Liu Brasher; Floyd Benavides; Amy Abdi; Nazario Sosa; Vikki Hunt; Brigid Lemon; Hossein Ureña; Luis M Barreto; Sunitha Carrillo; Riky Tyson; Elena Richter; Arelis Chowdhury; Edil Cerrato; Kwadwo Viera; Hua Fan Jr; Mag Lopez; Lexis Moreira; Jessica Galaviz; Sunday Temple; Troy Sanchez; Geraldine Schuster; Lexis Darling; Jesús Govea; Eligio Gill; Ananth Brown; Lester Cook; Darcy Gonzalez; Gauri Couch; Cayla Wilkins; Renea Hewitt; Camille Pettit; Virginia Pinzon; Sukh Casarez Jr; Georgia Jeffries; Margaret Grover; Leon Dunn Hospital Stay Data Consultations 10/06/24 21:52 Consult Orthopedic Surgery Routine 10/06/24 22:45 ED Decision to Admit Stat 10/07/24 02:29 Consult Anesthesiology Routine Procedures Performed Operation Date: 10/07/24 07:00 Actual Procedures p Open Reduction Internal Fixation Right Hip(Right) - David Lexii Brown MD Diagnostic Imagining Performed 10/07/24 12:00 FL hip RT 2-3V Routine Pending Results Patient Have Any Pending Studies at Discharge: No Discharge Instructions Given to Patient (Per Discharging Provider) Julio César Ca were admitted to the hospital due to a right hip fracture after a fall. You had an open reduction internal fixation (ORIF) of your right hip with Dr. Brown on 10/07/2024. You tolerated the surgery well. It was also noted that you have atrial fibrillation on exam/EKG, which does not appear to be new for you. However, you are not on any treatment for this prior to this hospitalization which increases the risk of stroke. We have started you on Eliquis (blood thinner) twice daily to prevent clots following surgery, but also to prevent a stroke from A-fib. Atrial fibrillation is a condition in which the heart beats in an irregular pattern. It is the most common abnormal heart rhythm. It is caused by a problem in the heart electrical pathways within the muscle of the upper chambers of the heart (atria). Because the atria are not sharon normally, blood may pool in the atria instead of moving into the ventricles (the lower chambers of the heart). This can increase the risk for blood clots and stroke. Heart palpitations are a common symptom of atrial fibrillation. This is the feeling that your heart is fluttering, or beating too fast, hard, or irregular. When the heart beats too fast, it does not pump blood very well. This can cause other symptoms, such as anxiety, fatigue, shortness of breath, chest pain, dizziness, or fainting. Upon discharge from the hospital: * Follow orthopedics instructions as listed below. * Take Tylenol 1000 mg every 8 hours as needed for pain. Use this as your first-line pain medication. * Take oxycodone 5-10 mg every 4 hours as needed for pain. Use this as your second line pain medication. * Continue Eliquis (blood thinner) 5 mg by mouth twice daily. * Take Vit D supplementation 50 mcg daily. * Take daily supplementation of vitamin B12, folic acid, and thiamine. * Follow any further discharge instructions from [facility]. * Follow-up with orthopedics. Your appointment is scheduled for 10/23/2024 at 10:30 AM. * Follow-up with your PCP in 1-2 weeks. Please return to the hospital if any of these occur: Increased swelling/pain at surgery site, shortness of breath or trouble breathing, passing out, uncontrolled bleeding, heartbeat that is irregular/very fast or slow compared with your normal heartbeat, chest pain or pressure, extreme drowsiness or confusion, numbness or weakness in your arms, legs, or face, or trouble speaking or seeing, or any other symptoms concerning for you. It was a pleasure taking care of you while you were in the hospital, Damaris Mark PA-C Total Time Total Time Spent Total Time Spent (In Minutes): Greater than 30 minutes spent completing this discharge process including direct patient care, medication reconciliation, documentation, review of labs and images, and coordination of care. Coding Level of Care Code 58511 INP/OBS DISCH >30 MIN Diagnoses Closed right hip fracture S72.001A Atrial fibrillation I48.91
== END 2024-10-10 13:25 | disposition short-term general hospital (02) | DRG 482 ==
LOC: ED 18:48 → SUATTDRO 22:30 → 3W 22:30 → 2N 10-07 18:02
DX: F17.290 Nicotine dependence, other tobacco product, uncomplicated; E53.8 Deficiency of other specified B group vitamins; E55.9 Vitamin D deficiency, unspecified; S72.141A Displaced intertrochanteric fracture of right femur, initial encounter for closed fracture; S51.011A Laceration without foreign body of right elbow, initial encounter; W01.198A Fall on same level from slipping, tripping and stumbling with subsequent striking against other object, initial encounter; I48.0 Paroxysmal atrial fibrillation